=== PATIENT | female | born 1950 | race Asian ===

== ENCOUNTER 2017-01-10 20:53 | Inpatient (IN) | payer MEDICARE, MEDICAID ==
[~2017-01-10] VITALS: Ht 152.4 cm; Wt 61.5 kg
[~2017-01-10 20:53] MED LIST: GLIM2 PO; LORA10TA7 PO; OMEP20 PO; PHOSLOC PO; SIMV-260 PO; WARF2TAB6 PO
[2017-01-10 22:40] LABS: BASOPHILS # (AUTO) 0.03 K/uL (0.00-0.20); BASOPHILS % (AUTO) 0.5 % (0.0-2.0); EOSINOPHILS # (AUTO) 0.27 K/uL (0.00-0.70); EOSINOPHILS % (AUTO) 4.23 % (1.0-6.0); HEMATOCRIT 34.8 % (36-46); HEMOGLOBIN 11.2 g/dL (12.0-16.0); LYMPHOCYTES # (AUTO) 1.2 K/uL (1.0-4.8); LYMPHOCYTES % (AUTO) 18.2 % (22.0-44.0); MEAN CORPUSCULAR HEMOGLOBIN 26.5 pg (26.0-34.0); MEAN CORPUSCULAR HGB CONC 32.3 G/dL (31.0-37.0); MEAN CORPUSCULAR VOLUME 82 fL (80-100); MONOCYTES # (AUTO) 0.6 K/uL (0.1-1.0); MONOCYTES % (AUTO) 9.9 % (2.0-9.0); NEUTROPHILS # (AUTO) 4.3 K/uL (1.8-7.7); NEUTROPHILS % (AUTO) 67.1 % (40.0-70.0); RED BLOOD CELL COUNT(AUTO) 4.25 MIL/uL (4.00-5.20); RED CELL DISTRIBUTION WIDTH 17.9 % (11.5-14.5); WHITE BLOOD COUNT (AUTO) 6.4 K/uL (4.5-11.0)
[2017-01-10 23:03] LABS: INR 2.1 (0.9-1.1); PROTHROMBIN TIME 22.5 SEC (9.4-11.6)
[2017-01-10 23:16] LABS: PLATELET COUNT (AUTO) 81 K/uL (150-450)
[2017-01-10 23:29] LABS: ALBUMIN 3.3 g/dL (3.4-5.0); CALCIUM, TOTAL 8.6 mg/dL (8.8-10.5); CREATININE 9.76 mg/dL (0.60-1.30); TOTAL PROTEIN, SERUM 8.2 g/dL (6.4-8.2)
[2017-01-10] MEDS ORDERED: HYDROmorphone 2 MG/ML SYRINGE IVP ONE (23:30)
[2017-01-10] MEDS ORDERED: ONDANSETRON HCL 4 MG/2 ML VIAL IVP ONE (23:30)
[2017-01-10 23:31] LABS: LACTIC ACID 1.2 mmol/L (0.4-2.0)
[2017-01-10 23:35] LABS: POTASSIUM 3.8 mmol/L (3.5-5.1)
[2017-01-11] MEDS ORDERED: 0.9% SODIUM CHLORIDE 10 ML SYRINGE IVP PRN
[2017-01-11] MEDS ORDERED: MethylPREDNISolone SOD SUCC 125 MG/2 ML VIAL IVP ONE (00:15)
[2017-01-11 00:27] LABS: ERYTHROCYTE SEDIMENTATION RATE 45 MM/HR (0-20)
[2017-01-11 01:19] VITALS: BP 131/52
[2017-01-11] MEDS ORDERED: MAGNESIUM HYDROXIDE SUSPENSION 30 ML UDCUP PO PRN (01:30)
[2017-01-11] MEDS ORDERED: ONDANSETRON HCL 4 MG/2 ML VIAL IVP PRN ×2 (01:30)
[2017-01-11] MEDS ORDERED: MORPHINE SULFATE 2 MG/ML SYRINGE IVP PRN (01:30)
[2017-01-11] MEDS ORDERED: ALBUTEROL SULFATE 2.5 MG/0.5 ML NEB SOLUTION NEB PRN (01:30)
[2017-01-11] MEDS ORDERED: IPRATROPIUM BROMIDE 0.5 MG/2.5 ML NEB SOLUTION NEB PRN (01:30)
[2017-01-11] MEDS ORDERED: ACETAMINOPHEN 325 MG TABLET PO PRN ×2 (01:30)
[2017-01-11] MEDS ORDERED: BISACODYL 10 MG RECTAL RECTAL SUPPOSITORY PR PRN (01:30)
[2017-01-11 05:36] VITALS: BP 105/51
[2017-01-11 07:24] VITALS: BP 100/46
[2017-01-11] MEDS: PANTOPRAZOLE SODIUM 40 MG/VIAL IVP SCH (08:14)
[2017-01-11] MEDS: CALCIUM ACETATE 667 MG CAPSULE PO SCH ×3 (08:14→18:19)
[2017-01-11] MEDS: GLIMEPIRIDE 2 MG TABLET PO SCH ×2 (08:14→18:19)
[2017-01-11] MEDS: MethylPREDNISolone SOD SUCC 125 MG/2 ML VIAL IVP SCH ×3 (08:14→23:08)
[2017-01-11] MEDS: HEPARIN SODIUM,PORCINE 5,000 UNITS/ML VIAL SQ SCH ×2 (08:15→23:08)
[2017-01-11] MEDS: OxyCODONE HCL/ACETAMINOPHEN 5-325 MG TABLET PO PRN (10:30)
[2017-01-11 11:15] VITALS: BP 106/50
[2017-01-11] MEDS ORDERED: LIDOCAINE HCL/PF 1% 2 ML VIAL INJ ONE (12:00)
[2017-01-11 15:26] VITALS: BP 109/55
[2017-01-11] MEDS: WARFARIN SODIUM 2 MG TABLET PO SCH (16:18)
[2017-01-11] MEDS ORDERED: SODIUM CHLORIDE 0.9% 2,000 ML IV ONE (18:39)
[2017-01-11] MEDS ORDERED: DOXERCALCIFEROL 4 MCG/2 ML AMP IVP PRN (21:15)
[2017-01-11] MEDS: SIMVASTATIN 20 MG TABLET PO SCH (23:08)
[2017-01-11 23:42] VITALS: BP 107/44
[2017-01-12 04:14] VITALS: BP 114/51
[2017-01-12 05:58] LABS: BASOPHILS % (AUTO) 0.1 % (0.0-2.0); EOSINOPHILS % (AUTO) 0 % (1.0-6.0); HEMATOCRIT 33.2 % (36-46); HEMOGLOBIN 10.8 g/dL (12.0-16.0); LYMPHOCYTES # (AUTO) 0.5 K/uL (1.0-4.8); MEAN CORPUSCULAR HEMOGLOBIN 26.6 pg (26.0-34.0); MEAN CORPUSCULAR HGB CONC 32.4 G/dL (31.0-37.0); MEAN CORPUSCULAR VOLUME 82 fL (80-100); MONOCYTES # (AUTO) 0.1 K/uL (0.1-1.0); MONOCYTES % (AUTO) 1.7 % (2.0-9.0); NEUTROPHILS # (AUTO) 3.9 K/uL (1.8-7.7); PLATELET COUNT (AUTO) 77 K/uL (150-450); RED BLOOD CELL COUNT(AUTO) 4.04 MIL/uL (4.00-5.20); WHITE BLOOD COUNT (AUTO) 4.5 K/uL (4.5-11.0)
[2017-01-12 06:05] LABS: INR 2.9 (0.9-1.1); PROTHROMBIN TIME 30.5 SEC (9.4-11.6)
[2017-01-12 06:22] LABS: ALBUMIN 3.1 g/dL (3.4-5.0); BILIRUBIN,TOTAL 0.7 mg/dL (0.1-1.0); CALCIUM, TOTAL 8.3 mg/dL (8.8-10.5); CREATININE 5.89 mg/dL (0.60-1.30); MAGNESIUM 1.9 mg/dL (1.80-2.40); PHOSPHORUS 6.4 mg/dL (2.5-4.9); POTASSIUM 4.8 mmol/L (3.5-5.1)
[2017-01-12 06:48] LABS: NEUTROPHILS % (AUTO) 88.2 % (40.0-70.0)
[2017-01-12 06:49] LABS: RBC MORPHOLOGY COMMENT ABNORMAL RBC MORPH
[2017-01-12 07:14] VITALS: BP 110/54
[2017-01-12] MEDS: HEPARIN SODIUM,PORCINE 5,000 UNITS/ML VIAL SQ SCH (08:22)
[2017-01-12] MEDS: CALCIUM ACETATE 667 MG CAPSULE PO SCH ×2 (08:22→12:00)
[2017-01-12] MEDS: GLIMEPIRIDE 2 MG TABLET PO SCH ×2 (08:22→22:31)
[2017-01-12] MEDS: PANTOPRAZOLE SODIUM 40 MG/VIAL IVP SCH (08:22)
[2017-01-12] MEDS: MethylPREDNISolone SOD SUCC 125 MG/2 ML VIAL IVP SCH ×2 (08:22→16:28)
[2017-01-12] MEDS: VITAMIN B COMP/VIT C/FOLIC ACID CAPSULE PO SCH (08:26)
[2017-01-12 10:59] LABS: HEMOGLOBIN A1C 7.4 % (4.5-6.2)
[2017-01-12 11:34] VITALS: BP 121/58
[2017-01-12 15:06] VITALS: BP 106/48
[2017-01-12] MEDS: WARFARIN SODIUM 2 MG TABLET PO SCH (20:04)
[2017-01-12] MEDS: SIMVASTATIN 20 MG TABLET PO SCH (20:04)
[2017-01-12 20:38] VITALS: BP 111/47
[2017-01-12 22:52] LABS: GLUCOSE,POINT OF CARE 276 MG/DL (70-110)
[2017-01-12 23:37] VITALS: BP 111/57
[2017-01-13] MEDS: MethylPREDNISolone SOD SUCC 125 MG/2 ML VIAL IVP SCH ×3 (00:05→17:08)
[2017-01-13] MEDS: ZOLPIDEM TARTRATE 5 MG TABLET PO PRN ×2 (00:18→22:35)
[2017-01-13 04:07] LABS: HEPATITIS C AB SCREEN <0.1 s/co ratio (0.0-0.9)
[2017-01-13 04:42] VITALS: BP 115/46
[2017-01-13 05:33] LABS: GLUCOSE,POINT OF CARE 224 MG/DL (70-110)
[2017-01-13 06:28] LABS: BASOPHILS % (AUTO) 0.1 % (0.0-2.0); EOSINOPHILS % (AUTO) 0.08 % (1.0-6.0); HEMATOCRIT 32.5 % (36-46); HEMOGLOBIN 10.7 g/dL (12.0-16.0); LYMPHOCYTES # (AUTO) 0.5 K/uL (1.0-4.8); LYMPHOCYTES % (AUTO) 10.5 % (22.0-44.0); MEAN CORPUSCULAR HEMOGLOBIN 26.8 pg (26.0-34.0); MEAN CORPUSCULAR HGB CONC 32.9 G/dL (31.0-37.0); MEAN CORPUSCULAR VOLUME 81 fL (80-100); MONOCYTES # (AUTO) 0.1 K/uL (0.1-1.0); MONOCYTES % (AUTO) 1.5 % (2.0-9.0); NEUTROPHILS # (AUTO) 4.3 K/uL (1.8-7.7); PLATELET COUNT (AUTO) 94 K/uL (150-450); RED BLOOD CELL COUNT(AUTO) 3.99 MIL/uL (4.00-5.20); RED CELL DISTRIBUTION WIDTH 17.7 % (11.5-14.5); WHITE BLOOD COUNT (AUTO) 4.9 K/uL (4.5-11.0)
[2017-01-13 06:49] LABS: NEUTROPHILS % (AUTO) 87.9 % (40.0-70.0)
[2017-01-13 07:15] VITALS: BP 108/55
[2017-01-13 07:28] LABS: CREATININE 8.54 mg/dL (0.60-1.30)
[2017-01-13 07:35] LABS: POTASSIUM 6.5 mmol/L (3.5-5.1)
[2017-01-13] MEDS ORDERED: SODIUM CHLORIDE 0.9% 1,000 ML IV ONE (08:05)
[2017-01-13] MEDS ORDERED: EPOETIN ALFA 10,000 UNITS/ML VIAL SQ SCH (09:00)
[2017-01-13 09:26] LABS: RBC MORPHOLOGY COMMENT ABNORMAL RBC MORPH
[2017-01-13] MEDS: CALCIUM ACETATE 667 MG CAPSULE PO SCH ×3 (09:36→17:08)
[2017-01-13] MEDS: VITAMIN B COMP/VIT C/FOLIC ACID CAPSULE PO SCH (09:37)
[2017-01-13] MEDS: GLIMEPIRIDE 2 MG TABLET PO SCH ×2 (09:37→17:08)
[2017-01-13 15:26] VITALS: BP 117/50
[2017-01-13] MEDS: WARFARIN SODIUM 2 MG TABLET PO SCH (17:08)
[2017-01-13 19:09] VITALS: BP 113/50
[2017-01-13] MEDS: SIMVASTATIN 20 MG TABLET PO SCH (20:07)
[2017-01-13] MEDS ORDERED: LIDOCAINE HCL/PF 1% 2 ML VIAL IM ONE (22:05)
[2017-01-13] MEDS: OxyCODONE HCL/ACETAMINOPHEN 5-325 MG TABLET PO PRN (22:35)
[2017-01-14] VITALS: BP_SYST 114; BP_DIAS 39; BP_DIAS 47
[2017-01-14 04:00] VITALS: BP 102/47
[2017-01-14 06:22] LABS: GLUCOSE COMMENT 1 Juice/Food/D50 Given; GLUCOSE,POINT OF CARE 281 MG/DL (70-110)
[2017-01-14 08:12] VITALS: BP 111/58
[2017-01-14] MEDS: GLIMEPIRIDE 2 MG TABLET PO SCH (08:53)
[2017-01-14] MEDS: VITAMIN B COMP/VIT C/FOLIC ACID CAPSULE PO SCH (08:53)
[2017-01-14] MEDS: MethylPREDNISolone SOD SUCC 125 MG/2 ML VIAL IVP SCH ×2 (08:53)
[2017-01-14] MEDS: CALCIUM ACETATE 667 MG CAPSULE PO SCH ×2 (08:53→11:58)
[2017-01-14 11:25] VITALS: BP 116/51
[2017-01-14 15:23] LABS: SSA/Ro SJOGRENS ANTIBODY <0.2 AI (0.0-0.9); SSB/La SJOGREN'S ANTIBODY <0.2 AI (0.0-0.9)
[2017-01-15 06:19] LABS: COMPLEMENT C3 107 mg/dL (82-167); COMPLEMENT C4 34 mg/dL (14-44)
[2017-01-17 12:09] LABS: ANTI-PROTEINASE 3 (PR3) <3.5 U/mL (0.0-3.5); MYELOPEROXIDASE AB <9.0 U/mL (0.0-9.0)
[2017-01-18 14:42] LABS: ANA,IFA (TITER & PATTERN) Negative
[2017-02-16] MEDS ORDERED: CEPH250 PO (15:35)
[2017-02-16] MEDS ORDERED: INSNPH SQ (15:35)
== END 2017-01-14 14:45 | disposition home or self-care (01) | DRG 438 ==
LOC: EMS 20:54 → 6N 01-11 00:41
PROVIDERS: ADMIT Internal Medicine; ATTEND Internal Medicine
PROC: 0HBKXZX Excision of Right Lower Leg Skin, External Approach, Diagnostic (ICD-10-PCS; principal; 2017-01-12)
DX: K85.90 Acute pancreatitis without necrosis or infection, unspecified (principal); N18.6 End stage renal disease; I13.2 Hypertensive heart and chronic kidney disease with heart failure and with stage 5 chronic kidney disease, or end stage renal disease; D69.6 Thrombocytopenia, unspecified; E11.22 Type 2 diabetes mellitus with diabetic chronic kidney disease; E11.65 Type 2 diabetes mellitus with hyperglycemia; I48.0 Paroxysmal atrial fibrillation; E87.1 Hypo-osmolality and hyponatremia; L95.9 Vasculitis limited to the skin, unspecified; D63.1 Anemia in chronic kidney disease; E55.9 Vitamin D deficiency, unspecified; E78.5 Hyperlipidemia, unspecified; I50.9 Heart failure, unspecified; E87.5 Hyperkalemia; I25.10 Atherosclerotic heart disease of native coronary artery without angina pectoris; N28.1 Cyst of kidney, acquired; K21.9 Gastro-esophageal reflux disease without esophagitis; Z79.84 Long term (current) use of oral hypoglycemic drugs; Z79.899 Other long term (current) drug therapy; Z86.73 Personal history of transient ischemic attack (TIA), and cerebral infarction without residual deficits; Z87.441 Personal history of nephrotic syndrome; Z95.1 Presence of aortocoronary bypass graft; Z95.2 Presence of prosthetic heart valve; Z95.810 Presence of automatic (implantable) cardiac defibrillator; Z99.2 Dependence on renal dialysis; Z79.01 Long term (current) use of anticoagulants
CPT/HCPCS: 76700; 82271; 82595; 82962; 83036; 83516; 83605; 83735; 84100; 85397; 85651; 86038; 86140; 86160; 86235; 86430; 86704; 86706; 86803; 87040; 87081; 87340; 87389; 90935; 93005; 96374; 96375; 99285; C9113; J0885; J1170; J1644; J2405; J2930; J3490; J7030

== ENCOUNTER 2017-02-05 15:19 | Emergency (ER) | payer MEDICARE, MEDICAID ==
[~2017-02-05] VITALS: Ht 149.9 cm; Wt 60.0 kg
[~2017-02-05 15:19] MED LIST changes: -LORA10TA7 PO
[2017-02-05 15:48] LABS: GLUCOSE,POINT OF CARE 404 MG/DL (70-110)
[2017-02-05 16:21] LABS: BASOPHILS % (AUTO) 0.1 % (0.0-2.0); EOSINOPHILS % (AUTO) 3.3 % (1.0-6.0); HEMATOCRIT 28.9 % (36-46); HEMOGLOBIN 9.4 g/dL (12.0-16.0); LYMPHOCYTES # (AUTO) 0.6 K/uL (1.0-4.8); LYMPHOCYTES % (AUTO) 8.7 % (22.0-44.0); MEAN CORPUSCULAR HEMOGLOBIN 26.6 pg (26.0-34.0); MEAN CORPUSCULAR HGB CONC 32.5 G/dL (31.0-37.0); MEAN CORPUSCULAR VOLUME 82 fL (80-100); MONOCYTES # (AUTO) 0.6 K/uL (0.1-1.0); MONOCYTES % (AUTO) 8.8 % (2.0-9.0); NEUTROPHILS # (AUTO) 5.7 K/uL (1.8-7.7); NEUTROPHILS % (AUTO) 79.1 % (40.0-70.0); RED BLOOD CELL COUNT(AUTO) 3.54 MIL/uL (4.00-5.20); RED CELL DISTRIBUTION WIDTH 18.1 % (11.5-14.5); WHITE BLOOD COUNT (AUTO) 7.2 K/uL (4.5-11.0)
[2017-02-05 16:27] LABS: INR 3.7 (0.9-1.1); PROTHROMBIN TIME 38.7 SEC (9.4-11.6)
[2017-02-05 17:01] LABS: CALCIUM, TOTAL 8.1 mg/dL (8.8-10.5); CREATININE 3.46 mg/dL (0.60-1.30); POTASSIUM 3.2 mmol/L (3.5-5.1)
[2017-02-05 17:15] LABS: ALBUMIN 2.8 g/dL (3.4-5.0)
[2017-02-05 17:22] LABS: PLATELET COUNT (AUTO) 79 K/uL (150-450); RBC MORPHOLOGY COMMENT ABNORMAL RBC MORPH
[2017-02-05 17:47] VITALS: BP 120/44
[2017-02-05] MEDS ORDERED: ACETAMINOPHEN 325 MG TABLET PO ONE (18:00)
[2017-02-16] MEDS ORDERED: INSNPH SQ (15:35)
[2017-02-16] MEDS ORDERED: CEPH250 PO (15:35)
== END 2017-02-05 18:31 | disposition home or self-care (01) ==
LOC: EMS 15:21
DX: I13.2 Hypertensive heart and chronic kidney disease with heart failure and with stage 5 chronic kidney disease, or end stage renal disease (principal); E11.22 Type 2 diabetes mellitus with diabetic chronic kidney disease; N18.6 End stage renal disease; I50.9 Heart failure, unspecified; E11.65 Type 2 diabetes mellitus with hyperglycemia; L97.509 Non-pressure chronic ulcer of other part of unspecified foot with unspecified severity; R79.1 Abnormal coagulation profile; Z99.2 Dependence on renal dialysis; Z95.0 Presence of cardiac pacemaker; Z86.73 Personal history of transient ischemic attack (TIA), and cerebral infarction without residual deficits
CPT/HCPCS: 70450; 74176; 82962; 99285

== ENCOUNTER → 2017-02-16 | Outpatient (CLI) | payer MEDICARE, MEDICAID ==
[~2017-02-16] VITALS: Ht 154.9 cm; Wt 59.7 kg
[~2017-02-16] MED LIST changes: +CEPH250 PO; +INSNPH SQ
[2017-02-16 14:12] VITALS: BP 119/46
== END | disposition home or self-care (01) ==
LOC: HBOWC 13:07
PROVIDERS: ATTEND Podiatrist
DX: E11.622 Type 2 diabetes mellitus with other skin ulcer (principal); L97.811 Non-pressure chronic ulcer of other part of right lower leg limited to breakdown of skin; I87.2 Venous insufficiency (chronic) (peripheral); E11.65 Type 2 diabetes mellitus with hyperglycemia; E11.22 Type 2 diabetes mellitus with diabetic chronic kidney disease; I13.2 Hypertensive heart and chronic kidney disease with heart failure and with stage 5 chronic kidney disease, or end stage renal disease; N18.6 End stage renal disease; I50.9 Heart failure, unspecified; I25.10 Atherosclerotic heart disease of native coronary artery without angina pectoris; K21.9 Gastro-esophageal reflux disease without esophagitis; E78.5 Hyperlipidemia, unspecified; I48.0 Paroxysmal atrial fibrillation; E55.9 Vitamin D deficiency, unspecified; Z99.2 Dependence on renal dialysis; Z95.1 Presence of aortocoronary bypass graft; Z86.73 Personal history of transient ischemic attack (TIA), and cerebral infarction without residual deficits; Z79.84 Long term (current) use of oral hypoglycemic drugs; Z79.01 Long term (current) use of anticoagulants
CPT/HCPCS: 97597; G0463

== ENCOUNTER 2017-03-29 23:09 | Emergency (ER) | payer MEDICARE, MEDICAID ==
[~2017-03-29] VITALS: Ht 144.8 cm; Wt 50.0 kg
[2017-03-29 23:28] LABS: GLUCOSE COMMENT 1 Doctor Notified; GLUCOSE,POINT OF CARE 93 MG/DL (70-110)
[2017-03-30 00:35] VITALS: BP 129/65
== END 2017-03-30 00:38 | disposition home or self-care (01) ==
LOC: EMS 23:10
DX: H11.31 Conjunctival hemorrhage, right eye (principal); I11.0 Hypertensive heart disease with heart failure; I50.9 Heart failure, unspecified; E11.29 Type 2 diabetes mellitus with other diabetic kidney complication; N28.9 Disorder of kidney and ureter, unspecified; Z79.4 Long term (current) use of insulin; Z99.2 Dependence on renal dialysis
CPT/HCPCS: 82962; 99282

== ENCOUNTER 2017-07-18 10:35 | Emergency (ER) | payer MEDICARE, MEDICAID ==
[~2017-07-18] VITALS: Ht 154.9 cm; Wt 55.5 kg
[~2017-07-18 10:35] MED LIST changes: -CEPH250 PO; +WARF-67 PO; -WARF2TAB6 PO
[2017-07-18 11:03] VITALS: BP 130/58
[2017-07-18 11:03] LABS: GLUCOSE,POINT OF CARE 90 MG/DL (70-110)
== END 2017-07-18 11:16 | disposition left against medical advice (07) ==
LOC: EMS 10:39
DX: R41.0 Disorientation, unspecified (principal); E11.9 Type 2 diabetes mellitus without complications; I11.0 Hypertensive heart disease with heart failure; I50.9 Heart failure, unspecified
CPT/HCPCS: 82962; 99282

== ENCOUNTER 2018-06-26 15:20 | Emergency (ER) | payer MEDICARE, MEDICAID ==
[~2018-06-26] VITALS: Ht 149.9 cm; Wt 61.4 kg
[~2018-06-26 15:20] MED LIST changes: +AZIT500T2 PO; -INSNPH SQ
[2018-06-26 15:38] LABS: GLUCOSE,POINT OF CARE 118 MG/DL (70-110)
[2018-06-26] MEDS ORDERED: GELATIN SPONGE,ABSORBABLE 12-7 MM TP ONE (17:15)
[2018-06-26 18:11] LABS: INR 1.4 (0.9-1.1); PROTHROMBIN TIME 14.7 SEC (9.4-11.6)
[2018-06-26 18:28] VITALS: BP 123/51
== END 2018-06-26 18:44 | disposition home or self-care (01) ==
LOC: EMS 15:22
DX: K06.8 Other specified disorders of gingiva and edentulous alveolar ridge (principal); I11.0 Hypertensive heart disease with heart failure; I50.9 Heart failure, unspecified; E11.9 Type 2 diabetes mellitus without complications; Z86.79 Personal history of other diseases of the circulatory system; Z79.01 Long term (current) use of anticoagulants; Z79.84 Long term (current) use of oral hypoglycemic drugs; Z79.899 Other long term (current) drug therapy

== ENCOUNTER 2018-07-08 23:59 | Emergency (ER) | payer MEDICARE, MEDICAID ==
[~2018-07-08] VITALS: Ht 157.5 cm; Wt 60.0 kg
[~2018-07-08 23:59] MED LIST changes: -AZIT500T2 PO
[2018-07-09] MEDS ORDERED: WARF3TAB29 PO (00:07)
[2018-07-09] MEDS ORDERED: WARF1 PO (00:07)
[2018-07-09 02:42] VITALS: BP 130/62
== END 2018-07-09 02:47 | disposition home or self-care (01) ==
LOC: EMS 07-09 00:01
DX: M79.5 Residual foreign body in soft tissue (principal); I11.0 Hypertensive heart disease with heart failure; I50.9 Heart failure, unspecified; E11.9 Type 2 diabetes mellitus without complications; Z79.899 Other long term (current) drug therapy

== ENCOUNTER → 2018-09-13 | Outpatient (CLI) | payer MEDICARE, MEDICAID ==
[~2018-09-13] MED LIST changes: -WARF-67 PO; +WARF1 PO; +WARF3TAB29 PO
== END | disposition home or self-care (01) ==
LOC: RADPV 13:51
PROVIDERS: ATTEND Internal Medicine Nephrology
DX: I51.7 Cardiomegaly (principal); I70.0 Atherosclerosis of aorta; R04.2 Hemoptysis

== ENCOUNTER 2019-04-30 02:57 | Emergency (ER) | payer MEDICARE, MEDICAID ==
[~2019-04-30] VITALS: Ht 152.4 cm; Wt 61.0 kg
[2019-04-30 03:26] LABS: GLUCOSE,POINT OF CARE 97 MG/DL (70-110)
[2019-04-30 04:21] LABS: BASOPHILS % (AUTO) 0.8 % (0.0-2.0); EOSINOPHILS % (AUTO) 6.3 % (1.0-6.0); HEMATOCRIT 31.2 % (36-46); LYMPHOCYTES % (AUTO) 18.1 % (22.0-44.0); MEAN CORPUSCULAR HEMOGLOBIN 26.2 pg (26.0-34.0); MEAN CORPUSCULAR VOLUME 82 fL (80-100); MONOCYTES % (AUTO) 17.3 % (2.0-9.0); NEUTROPHILS # (AUTO) 3.2 K/uL (1.8-7.7); NEUTROPHILS % (AUTO) 57.5 % (40.0-70.0); RED BLOOD CELL COUNT(AUTO) 3.81 MIL/uL (4.00-5.20); RED CELL DISTRIBUTION WIDTH 16.4 % (11.5-14.5)
[2019-04-30 04:28] LABS: CREATININE 8.65 mg/dL (0.60-1.30); POTASSIUM 4.1 mmol/L (3.5-5.1)
[2019-04-30 04:31] LABS: INR 2.2 (0.9-1.1); PROTHROMBIN TIME 22.3 SEC (9.4-11.6)
[2019-04-30 04:42] LABS: PLATELET COUNT (AUTO) 74 K/uL (150-450)
[2019-04-30 04:54] LABS: ALBUMIN 3.3 g/dL (3.4-5.0); BILIRUBIN,TOTAL 0.6 mg/dL (0.1-1.0); TOTAL PROTEIN, SERUM 7.8 g/dL (6.4-8.2)
[2019-04-30 06:01] VITALS: BP 122/63
== END 2019-04-30 06:05 | disposition home or self-care (01) ==
LOC: EMS 02:57
DX: R05 Cough (principal); R79.1 Abnormal coagulation profile; R06.02 Shortness of breath; I13.2 Hypertensive heart and chronic kidney disease with heart failure and with stage 5 chronic kidney disease, or end stage renal disease; E11.22 Type 2 diabetes mellitus with diabetic chronic kidney disease; N18.6 End stage renal disease; I50.9 Heart failure, unspecified; I25.10 Atherosclerotic heart disease of native coronary artery without angina pectoris; Z99.2 Dependence on renal dialysis; Z86.73 Personal history of transient ischemic attack (TIA), and cerebral infarction without residual deficits; Z79.01 Long term (current) use of anticoagulants
CPT/HCPCS: 93005

== ENCOUNTER → 2019-05-23 | Outpatient (CLI) | payer MEDICARE, MEDICAID | END | disposition home or self-care (01) | LOC: RADPV 08:52 | PROVIDERS: ATTEND Internal Medicine Nephrology | DX: E85.4 Organ-limited amyloidosis (principal) ==

== ENCOUNTER 2020-06-14 01:21 | Emergency (ER) | payer MEDICARE, MEDICAID ==
[~2020-06-14] VITALS: Ht 152.4 cm; Wt 59.1 kg
[~2020-06-14 01:21] MED LIST changes: -WARF1 PO; +WARF1TAB9 PO; -WARF3TAB29 PO; +WARF3TAB8 PO
[2020-06-14 01:58] LABS: GLUCOSE,POINT OF CARE 205 MG/DL (70-110)
[2020-06-14 02:35] LABS: BASOPHILS % (AUTO) 0.8 % (0.0-2.0); EOSINOPHILS % (AUTO) 4.5 % (1.0-6.0); HEMATOCRIT 36.6 % (36-46); HEMOGLOBIN 11.7 g/dL (12.0-16.0); LYMPHOCYTES # (AUTO) 1.5 K/uL (1.0-4.8); LYMPHOCYTES % (AUTO) 20.4 % (22.0-44.0); MEAN CORPUSCULAR HEMOGLOBIN 26.7 pg (26.0-34.0); MEAN CORPUSCULAR VOLUME 83 fL (80-100); MONOCYTES # (AUTO) 0.9 K/uL (0.1-1.0); MONOCYTES % (AUTO) 12.7 % (2.0-9.0); NEUTROPHILS # (AUTO) 4.4 K/uL (1.8-7.7); NEUTROPHILS % (AUTO) 61.6 % (40.0-70.0); RED BLOOD CELL COUNT(AUTO) 4.38 MIL/uL (4.00-5.20); RED CELL DISTRIBUTION WIDTH 16.8 % (11.5-14.5)
[2020-06-14 03:01] LABS: ALBUMIN 3.7 g/dL (3.4-5.0); BILIRUBIN,TOTAL 0.7 mg/dL (0.1-1.0); CALCIUM, TOTAL 10.2 mg/dL (8.8-10.5); CREATININE 8.33 mg/dL (0.60-1.30); POTASSIUM 4.4 mmol/L (3.5-5.1)
[2020-06-14 03:07] LABS: PLATELET COUNT (AUTO) 93 K/uL (150-450)
[2020-06-14] MEDS ORDERED: DiphenhydrAMINE HCL 25 MG/10 ML ELIXIR UDCUP PO ONE (03:45)
[2020-06-14 03:58] LABS: INR 1.9 (0.9-1.1); PROTHROMBIN TIME 19.3 SEC (9.4-11.6)
[2020-06-14 04:20] VITALS: BP 125/75
== END 2020-06-14 04:52 | disposition home or self-care (01) ==
LOC: EMS 01:26
DX: D69.6 Thrombocytopenia, unspecified (principal); E11.22 Type 2 diabetes mellitus with diabetic chronic kidney disease; I13.2 Hypertensive heart and chronic kidney disease with heart failure and with stage 5 chronic kidney disease, or end stage renal disease; I50.9 Heart failure, unspecified; N18.6 End stage renal disease; Z99.2 Dependence on renal dialysis; Z79.01 Long term (current) use of anticoagulants
CPT/HCPCS: 93005; 99284

== ENCOUNTER 2020-10-31 06:08 | Emergency (ER) | payer MEDICARE, MEDICAID ==
[~2020-10-31] VITALS: Ht 149.9 cm; Wt 60.9 kg
[2020-10-31 07:16] LABS: BASOPHILS % (AUTO) 0.9 % (0.0-2.0); EOSINOPHILS % (AUTO) 4.2 % (1.0-6.0); HEMATOCRIT 36.4 % (36-46); HEMOGLOBIN 11.5 g/dL (12.0-16.0); LYMPHOCYTES # (AUTO) 1.2 K/uL (1.0-4.8); LYMPHOCYTES % (AUTO) 21.2 % (22.0-44.0); MEAN CORPUSCULAR HEMOGLOBIN 27.2 pg (26.0-34.0); MEAN CORPUSCULAR HGB CONC 31.5 G/dL (31.0-37.0); MEAN CORPUSCULAR VOLUME 86 fL (80-100); MONOCYTES # (AUTO) 0.7 K/uL (0.1-1.0); MONOCYTES % (AUTO) 12.8 % (2.0-9.0); NEUTROPHILS # (AUTO) 3.4 K/uL (1.8-7.7); NEUTROPHILS % (AUTO) 60.9 % (40.0-70.0); RED BLOOD CELL COUNT(AUTO) 4.22 MIL/uL (4.00-5.20); RED CELL DISTRIBUTION WIDTH 16.5 % (11.5-14.5)
[2020-10-31 07:26] LABS: CALCIUM, TOTAL 9.8 mg/dL (8.8-10.5); CREATININE 5.56 mg/dL (0.60-1.30); POTASSIUM 3.9 mmol/L (3.5-5.1)
[2020-10-31 07:29] LABS: INR 3.3 (0.9-1.1); PROTHROMBIN TIME 31.9 SEC (9.4-11.6)
[2020-10-31 07:32] LABS: ALBUMIN 3.7 g/dL (3.4-5.0); BILIRUBIN,TOTAL 0.7 mg/dL (0.1-1.0); PLATELET COUNT (AUTO) 99 K/uL (150-450); TOTAL PROTEIN, SERUM 8.3 g/dL (6.4-8.2)
[2020-10-31 08:54] VITALS: BP 145/74
== END 2020-10-31 08:55 | disposition home or self-care (01) ==
LOC: EMS 06:09
DX: T82.838A Hemorrhage due to vascular prosthetic devices, implants and grafts, initial encounter (principal); I13.2 Hypertensive heart and chronic kidney disease with heart failure and with stage 5 chronic kidney disease, or end stage renal disease; E11.22 Type 2 diabetes mellitus with diabetic chronic kidney disease; N18.6 End stage renal disease; Z79.899 Other long term (current) drug therapy; Z79.4 Long term (current) use of insulin; Z79.01 Long term (current) use of anticoagulants; Y84.8 Other medical procedures as the cause of abnormal reaction of the patient, or of later complication, without mention of misadventure at the time of the procedure
CPT/HCPCS: 80053; 85025; 85610; 85730; 86850; 86870; 86900; 86901; 99284

== ENCOUNTER 2021-03-09 10:18 | Inpatient (IN) | payer MEDICARE, MEDICAID ==
[~2021-03-09] VITALS: Ht 154.9 cm; Wt 61.3 kg
[2021-03-09 11:41] LABS: BASOPHILS % (AUTO) 0.3 % (0.0-2.0); EOSINOPHILS % (AUTO) 0 % (1.0-6.0); HEMATOCRIT 33.1 % (36-46); HEMOGLOBIN 10.4 g/dL (12.0-16.0); LYMPHOCYTES # (AUTO) 0.6 K/uL (1.0-4.8); LYMPHOCYTES % (AUTO) 3.4 % (22.0-44.0); MEAN CORPUSCULAR HEMOGLOBIN 25.9 pg (26.0-34.0); MEAN CORPUSCULAR HGB CONC 31.4 G/dL (31.0-37.0); MEAN CORPUSCULAR VOLUME 82 fL (80-100); MONOCYTES # (AUTO) 1.5 K/uL (0.1-1.0); MONOCYTES % (AUTO) 8.4 % (2.0-9.0); NEUTROPHILS # (AUTO) 15.5 K/uL (1.8-7.7); RED BLOOD CELL COUNT(AUTO) 4.02 MIL/uL (4.00-5.20); RED CELL DISTRIBUTION WIDTH 16.6 % (11.5-14.5)
[2021-03-09 11:42] LABS: NEUTROPHILS % (AUTO) 87.9 % (40.0-70.0)
[2021-03-09 11:46] LABS: PLATELET COUNT (AUTO) 50 K/uL (150-450)
[2021-03-09 11:56] LABS: COVID AG,FIA SOURCE NASOPHARYNGEAL
[2021-03-09 12:25] LABS: ALBUMIN 3.4 g/dL (3.4-5.0); BILIRUBIN,TOTAL 1.3 mg/dL (0.1-1.0); CREATININE 9.72 mg/dL (0.60-1.30); POTASSIUM 3.9 mmol/L (3.5-5.1); TOTAL PROTEIN, SERUM 7.9 g/dL (6.4-8.2)
[2021-03-09] MEDS ORDERED: ACETAMINOPHEN 500 MG TABLET PO ONE (12:30)
[2021-03-09] MEDS ORDERED: CefTRIAXone 1 GM/DEXTROSE 50 ML IV ONE (12:30)
[2021-03-09] MEDS ORDERED: SODIUM CHLORIDE 0.9% 500 ML IV ONE ×2 (12:30→14:15)
[2021-03-09] MEDS ORDERED: DOXYCYCLINE HYCLATE 100 MG in DEXTROSE 5%-WATER 100 ML IV ONE (13:00)
[2021-03-09 13:04] LABS: LACTIC ACID 2.3 mmol/L (0.4-2.0)
[2021-03-09] MEDS ORDERED: DEXTROSE 50%-WATER 25 GM/50 ML SYRINGE IVP PRN (14:15)
[2021-03-09] MEDS ORDERED: ACETAMINOPHEN 325 MG TABLET PO PRN (14:30)
[2021-03-09] MEDS ORDERED: 0.9% SODIUM CHLORIDE 10 ML SYRINGE IVP PRN (14:30)
[2021-03-09] MEDS ORDERED: ONDANSETRON HCL 4 MG/2 ML VIAL IVP PRN (14:30)
[2021-03-09 14:48] LABS: INFLUENZA TYPE A NEGATIVE FOR TYPE A (NEGATIVE); INFLUENZA TYPE B NEGATIVE FOR TYPE B (NEGATIVE)
[2021-03-09 14:57] LABS: INR 1.6 (0.9-1.1); PROTHROMBIN TIME 16.6 SEC (9.4-11.6)
[2021-03-09] MEDS ORDERED: HEPARIN SODIUM,PORCINE 5,000 UNITS/ML VIAL SQ SCH (16:00)
[2021-03-09] MEDS: CALCIUM ACETATE 667 MG CAPSULE PO SCH (17:00)
[2021-03-09 17:25] VITALS: BP 127/60
[2021-03-09] MEDS ORDERED: LACT30L PO (17:55)
[2021-03-09] MEDS ORDERED: SEVE800T7 PO (17:55)
[2021-03-09 20:10] VITALS: BP 122/57
[2021-03-09 20:37] LABS: GLUCOMETER DEV NAME(LOC) 5N.3; GLUCOSE,POINT OF CARE 369 MG/DL (70-110)
[2021-03-09] MEDS: WARFARIN SODIUM 1 MG TABLET PO SCH (21:00)
[2021-03-09] MEDS: SIMVASTATIN 20 MG TABLET PO SCH (21:00)
[2021-03-09] MEDS: DOCUSATE SODIUM 100 MG CAPSULE PO SCH (21:00)
[2021-03-10] VITALS (7 sets, daily range): BP systolic 103–134; BP diastolic 44–65
[2021-03-10] MEDS: AZITHROMYCIN 500 MG/NS 250 ML IV SCH (05:25)
[2021-03-10 05:57] LABS: GLUCOMETER DEV NAME(LOC) 5N.3; GLUCOSE,POINT OF CARE 134 MG/DL (70-110)
[2021-03-10 06:00] LABS: BASOPHILS % (AUTO) 0.2 % (0.0-2.0); EOSINOPHILS % (AUTO) 0.1 % (1.0-6.0); HEMATOCRIT 28.4 % (36-46); HEMOGLOBIN 9.2 g/dL (12.0-16.0); LYMPHOCYTES # (AUTO) 0.8 K/uL (1.0-4.8); LYMPHOCYTES % (AUTO) 5.9 % (22.0-44.0); MEAN CORPUSCULAR HGB CONC 32.3 G/dL (31.0-37.0); MEAN CORPUSCULAR VOLUME 80 fL (80-100); MONOCYTES # (AUTO) 1.4 K/uL (0.1-1.0); MONOCYTES % (AUTO) 9.6 % (2.0-9.0); NEUTROPHILS # (AUTO) 12.1 K/uL (1.8-7.7); NEUTROPHILS % (AUTO) 84.2 % (40.0-70.0); PLATELET COUNT (AUTO) 51 K/uL (150-450); RED BLOOD CELL COUNT(AUTO) 3.53 MIL/uL (4.00-5.20)
[2021-03-10 06:44] LABS: CALCIUM, TOTAL 8.7 mg/dL (8.8-10.5); CREATININE 10.66 mg/dL (0.60-1.30); POTASSIUM 4.3 mmol/L (3.5-5.1)
[2021-03-10 06:49] LABS: INR 2.1 (0.9-1.1); PROTHROMBIN TIME 21.2 SEC (9.4-11.6)
[2021-03-10] MEDS: PANTOPRAZOLE SODIUM 40 MG DR TABLET PO SCH (08:14)
[2021-03-10] MEDS: DOCUSATE SODIUM 100 MG CAPSULE PO SCH ×2 (08:14→21:00)
[2021-03-10] MEDS: CALCIUM ACETATE 667 MG CAPSULE PO SCH ×2 (08:14→17:02)
[2021-03-10] MEDS ORDERED: WARFARIN SODIUM 1 MG TABLET PO SCH (09:00)
[2021-03-10] MEDS: CefTRIAXone 1 GM/DEXTROSE 50 ML IV SCH (11:14)
[2021-03-10] MEDS ORDERED: SODIUM CHLORIDE 0.9% 250 ML IV ONE (11:16)
[2021-03-10] MEDS: INSULIN LISPRO 100 UNITS/ML SQ PRN (11:32)
[2021-03-10] MEDS ORDERED: SODIUM CHLORIDE 0.9% 1,000 ML ONE (17:13)
[2021-03-10 17:30] LABS: GLUCOMETER DEV NAME(LOC) 5N.1C; GLUCOSE,POINT OF CARE 139 MG/DL (70-110)
[2021-03-10] MEDS: ONDANSETRON HCL 4 MG/2 ML VIAL IVP PRN (18:32)
[2021-03-10 22:21] LABS: GLUCOMETER DEV NAME(LOC) 5N.1C; GLUCOSE,POINT OF CARE 87 MG/DL (70-110)
[2021-03-10] MEDS: SIMVASTATIN 20 MG TABLET PO SCH (22:58)
[2021-03-10] MEDS: ZOLPIDEM TARTRATE 5 MG TABLET PO PRN (22:59)
[2021-03-10] MEDS: WARFARIN SODIUM 1 MG TABLET PO SCH (22:59)
[2021-03-11] VITALS (7 sets, daily range): BP systolic 85–109; BP diastolic 40–57
[2021-03-11] MEDS ORDERED: SODIUM CHLORIDE 0.9% 250 ML IV ONE ×3 (05:41→11:22)
[2021-03-11] MEDS: AZITHROMYCIN 500 MG/NS 250 ML IV SCH (06:21)
[2021-03-11 06:23] LABS: GLUCOMETER DEV NAME(LOC) 5N.3; GLUCOSE,POINT OF CARE 222 MG/DL (70-110)
[2021-03-11 06:53] LABS: BASOPHILS % (AUTO) 0.3 % (0.0-2.0); HEMATOCRIT 29.4 % (36-46); HEMOGLOBIN 9.3 g/dL (12.0-16.0); LYMPHOCYTES # (AUTO) 0.9 K/uL (1.0-4.8); LYMPHOCYTES % (AUTO) 9.1 % (22.0-44.0); MEAN CORPUSCULAR HEMOGLOBIN 26.7 pg (26.0-34.0); MEAN CORPUSCULAR HGB CONC 31.5 G/dL (31.0-37.0); MEAN CORPUSCULAR VOLUME 85 fL (80-100); MONOCYTES # (AUTO) 0.9 K/uL (0.1-1.0); MONOCYTES % (AUTO) 9.6 % (2.0-9.0); NEUTROPHILS # (AUTO) 7.9 K/uL (1.8-7.7); PLATELET COUNT (AUTO) 57 K/uL (150-450); RED BLOOD CELL COUNT(AUTO) 3.47 MIL/uL (4.00-5.20); RED CELL DISTRIBUTION WIDTH 17.4 % (11.5-14.5)
[2021-03-11 07:00] LABS: CALCIUM, TOTAL 9.5 mg/dL (8.8-10.5); CREATININE 4.94 mg/dL (0.60-1.30); POTASSIUM 4.2 mmol/L (3.5-5.1)
[2021-03-11 07:08] LABS: INR 1.8 (0.9-1.1); PROTHROMBIN TIME 18.6 SEC (9.4-11.6)
[2021-03-11] MEDS: CALCIUM ACETATE 667 MG CAPSULE PO SCH ×2 (08:06→17:24)
[2021-03-11] MEDS: DOCUSATE SODIUM 100 MG CAPSULE PO SCH ×2 (08:06→20:44)
[2021-03-11] MEDS: PANTOPRAZOLE SODIUM 40 MG DR TABLET PO SCH (08:06)
[2021-03-11] MEDS: EPOETIN ALFA 10,000 UNITS/ML 2 ML VIAL SQ SCH (08:07)
[2021-03-11] MEDS ORDERED: WARFARIN SODIUM 3 MG TABLET PO SCH (09:00)
[2021-03-11] MEDS ORDERED: SODIUM CHLORIDE 0.9% 1,000 ML ONE (11:22)
[2021-03-11 12:02] LABS: GLUCOMETER DEV NAME(LOC) 5N.1C; GLUCOSE,POINT OF CARE 165 MG/DL (70-110)
[2021-03-11 12:03] LABS: GLUCOMETER DEV NAME(LOC) 5N.1C; GLUCOSE,POINT OF CARE 129 MG/DL (70-110)
[2021-03-11] MEDS ORDERED: SODIUM CHLORIDE 0.9% 1,000 ML IV ONE (12:15)
[2021-03-11] MEDS: INSULIN LISPRO 100 UNITS/ML SQ PRN ×2 (12:38→17:20)
[2021-03-11] MEDS: CefTRIAXone 1 GM/DEXTROSE 50 ML IV SCH (12:49)
[2021-03-11] MEDS: BISACODYL 10 MG RECTAL RECTAL SUPPOSITORY PR PRN (16:56)
[2021-03-11 20:43] LABS: GLUCOMETER DEV NAME(LOC) 5N.1C; GLUCOSE,POINT OF CARE 107 MG/DL (70-110)
[2021-03-11] MEDS: HYDROCODONE/ACETAMINOPHEN 5-325 MG TABLET PO PRN (20:44)
[2021-03-11] MEDS: ZOLPIDEM TARTRATE 5 MG TABLET PO PRN (20:44)
[2021-03-11] MEDS: WARFARIN SODIUM 1 MG TABLET PO SCH (20:44)
[2021-03-11] MEDS: SIMVASTATIN 20 MG TABLET PO SCH (20:44)
[2021-03-11 21:11] LABS: GLUCOMETER DEV NAME(LOC) 5S.1; GLUCOSE,POINT OF CARE 173 MG/DL (70-110)
[2021-03-12 03:56] VITALS: BP 99/46
[2021-03-12] MEDS: AZITHROMYCIN 500 MG/NS 250 ML IV SCH (05:44)
[2021-03-12] MEDS: HYDROCODONE/ACETAMINOPHEN 5-325 MG TABLET PO PRN (05:45)
[2021-03-12 05:48] LABS: GLUCOMETER DEV NAME(LOC) 5N.3; GLUCOSE,POINT OF CARE 81 MG/DL (70-110)
[2021-03-12 07:00] LABS: BASOPHILS % (AUTO) 0.6 % (0.0-2.0); EOSINOPHILS % (AUTO) 2.9 % (1.0-6.0); HEMATOCRIT 26.8 % (36-46); HEMOGLOBIN 8.5 g/dL (12.0-16.0); LYMPHOCYTES % (AUTO) 12.9 % (22.0-44.0); MEAN CORPUSCULAR HEMOGLOBIN 26.2 pg (26.0-34.0); MEAN CORPUSCULAR HGB CONC 31.7 G/dL (31.0-37.0); MEAN CORPUSCULAR VOLUME 83 fL (80-100); MONOCYTES # (AUTO) 0.9 K/uL (0.1-1.0); MONOCYTES % (AUTO) 11.3 % (2.0-9.0); NEUTROPHILS # (AUTO) 5.6 K/uL (1.8-7.7); NEUTROPHILS % (AUTO) 72.3 % (40.0-70.0); PLATELET COUNT (AUTO) 63 K/uL (150-450); RED BLOOD CELL COUNT(AUTO) 3.23 MIL/uL (4.00-5.20); RED CELL DISTRIBUTION WIDTH 17.2 % (11.5-14.5)
[2021-03-12 07:12] LABS: PROTHROMBIN TIME 19.8 SEC (9.4-11.6)
[2021-03-12 07:17] LABS: CREATININE 6.8 mg/dL (0.60-1.30); POTASSIUM 4.6 mmol/L (3.5-5.1)
[2021-03-12 07:29] VITALS: BP 88/51
[2021-03-12] MEDS: PANTOPRAZOLE SODIUM 40 MG DR TABLET PO SCH (08:46)
[2021-03-12] MEDS: DOCUSATE SODIUM 100 MG CAPSULE PO SCH ×2 (08:47→21:00)
[2021-03-12] MEDS: CALCIUM ACETATE 667 MG CAPSULE PO SCH ×2 (08:47→17:30)
[2021-03-12 08:51] VITALS: BP 99/39
[2021-03-12] MEDS ORDERED: SODIUM CHLORIDE 0.9% 2,000 ML ONE ×2 (09:38→11:39)
[2021-03-12] MEDS: NOREPINEPHRINE 4 MG/D5%-WATER 250 ML IV PRN ×2 (11:41→23:44)
[2021-03-12] MEDS ORDERED: *CLINICAL-CEFEPIME DOSING CLINICAL ONE (12:00)
[2021-03-12 12:04] VITALS: BP 101/42
[2021-03-12] MEDS ORDERED: VANCOMYCIN HCL 1 GM/D5% WATER 200 ML IV PRN (12:15)
[2021-03-12] MEDS ORDERED: VANCOMYCIN HCL 1.25 GM in DEXTROSE 5%-WATER 250 ML IV ONE (13:00)
[2021-03-12] MEDS ORDERED: CEFEPIME HCL 1 GM in DEXTROSE 5%-WATER 50 ML IV ONE (15:00)
[2021-03-12] MEDS ORDERED: SODIUM CHLORIDE 0.9% 250 ML IV ONE (15:10)
[2021-03-12] MEDS: CefTRIAXone SODIUM 2 GM in DEXTROSE 5%-WATER 50 ML IV SCH (15:14)
[2021-03-12] MEDS ORDERED: SODIUM CHLORIDE 0.9% 100 ML ONE (15:44)
[2021-03-12] MEDS ORDERED: IOHEXOL 350 MG/ML 100 ML VIAL ONE (15:44)
[2021-03-12 16:06] VITALS: BP 92/50
[2021-03-12] MEDS: INSULIN LISPRO 100 UNITS/ML SQ PRN ×2 (17:03→23:45)
[2021-03-12] MEDS ORDERED: ALBUMIN HUMAN 25%-12.5GM/50ML IV BOTTLE IV ONE (17:05)
[2021-03-12] MEDS ORDERED: SIMETHICONE 80 MG CHEWABLE TABLET CHEW ONE (19:00)
[2021-03-12 20:00] VITALS: BP 99/58
[2021-03-12] MEDS: WARFARIN SODIUM 1 MG TABLET PO SCH (21:00)
[2021-03-12] MEDS: SIMVASTATIN 20 MG TABLET PO SCH (21:00)
[2021-03-12 21:33] LABS: GLUCOSE,POINT OF CARE 183 MG/DL (70-110)
[2021-03-12 21:33] LABS: GLUCOSE,POINT OF CARE 126 MG/DL (70-110)
[2021-03-12 23:36] LABS: GLUCOSE,POINT OF CARE 230 MG/DL (70-110)
[2021-03-12] MEDS: ZOLPIDEM TARTRATE 5 MG TABLET PO PRN (23:45)
[2021-03-13] VITALS: BP 109/70
[2021-03-13] MEDS: HYDROCODONE/ACETAMINOPHEN 5-325 MG TABLET PO PRN ×2 (03:42→14:51)
[2021-03-13 04:00] VITALS: BP 96/82
[2021-03-13 06:51] LABS: BASOPHILS % (AUTO) 0.5 % (0.0-2.0); EOSINOPHILS % (AUTO) 1.2 % (1.0-6.0); HEMATOCRIT 28.7 % (36-46); HEMOGLOBIN 9.1 g/dL (12.0-16.0); LYMPHOCYTES # (AUTO) 0.7 K/uL (1.0-4.8); LYMPHOCYTES % (AUTO) 5.8 % (22.0-44.0); MEAN CORPUSCULAR HGB CONC 31.7 G/dL (31.0-37.0); MEAN CORPUSCULAR VOLUME 82 fL (80-100); MONOCYTES # (AUTO) 1.7 K/uL (0.1-1.0); MONOCYTES % (AUTO) 14.5 % (2.0-9.0); NEUTROPHILS # (AUTO) 9.3 K/uL (1.8-7.7); PLATELET COUNT (AUTO) 100 K/uL (150-450); RED CELL DISTRIBUTION WIDTH 16.9 % (11.5-14.5)
[2021-03-13] MEDS: INSULIN LISPRO 100 UNITS/ML SQ PRN (06:51)
[2021-03-13 06:56] LABS: GLUCOSE,POINT OF CARE 168 MG/DL (70-110)
[2021-03-13 07:10] LABS: ALBUMIN 3.2 g/dL (3.4-5.0); BILIRUBIN,TOTAL 0.7 mg/dL (0.1-1.0); CALCIUM, TOTAL 8.9 mg/dL (8.8-10.5); CREATININE 4.33 mg/dL (0.60-1.30); POTASSIUM 4.2 mmol/L (3.5-5.1); TOTAL PROTEIN, SERUM 7.7 g/dL (6.4-8.2)
[2021-03-13 07:31] LABS: INR 2.4 (0.9-1.1)
[2021-03-13 08:00] VITALS: BP 100/63
[2021-03-13] MEDS: NOREPINEPHRINE 4 MG/D5%-WATER 250 ML IV PRN ×3 (09:37→20:13)
[2021-03-13] MEDS: EPOETIN ALFA 10,000 UNITS/ML 2 ML VIAL SQ SCH (09:38)
[2021-03-13] MEDS: PANTOPRAZOLE SODIUM 40 MG DR TABLET PO SCH (09:38)
[2021-03-13] MEDS: CALCIUM ACETATE 667 MG CAPSULE PO SCH (09:38)
[2021-03-13] MEDS: DOCUSATE SODIUM 100 MG CAPSULE PO SCH ×2 (09:38→20:12)
[2021-03-13] MEDS ORDERED: BENZOCAINE 20% 50 MCG/SPRAY 57 GM ONE (10:29)
[2021-03-13] MEDS ORDERED: MIDAZOLAM HCL 2 MG/2 ML VIAL ONE (11:11)
[2021-03-13] MEDS ORDERED: FentaNYL CITRATE PF 100 MCG/2 ML VIAL ONE (11:11)
[2021-03-13] MEDS ORDERED: PHENYLEPHRINE 200 MG/D5%-WATER 250 ML IV PRN (11:30)
[2021-03-13 12:00] VITALS: BP 91/64
[2021-03-13] MEDS ORDERED: MIDAZOLAM HCL 2 MG/2 ML VIAL IVP ONE (12:30)
[2021-03-13] MEDS ORDERED: FentaNYL CITRATE PF 100 MCG/2 ML VIAL IVP ONE (12:30)
[2021-03-13 13:09] LABS: C-REACTIVE PROTEIN QUANT 13.29 mg/dL (0.00-0.30)
[2021-03-13 13:32] LABS: GLUCOSE,POINT OF CARE 120 MG/DL (70-110)
[2021-03-13] MEDS: CefTRIAXone SODIUM 2 GM in DEXTROSE 5%-WATER 50 ML IV SCH (14:44)
[2021-03-13] MEDS: ETHYL ALCOHOL 62% ANTISEPTIC NASAL INHALANT 0.6 ML AMPUL NASAL SCH ×2 (14:44→20:11)
[2021-03-13 16:00] VITALS: BP 104/66
[2021-03-13] MEDS ORDERED: CEFEPIME HCL 0.5 GM in DEXTROSE 5%-WATER 50 ML IV SCH (16:00)
[2021-03-13 17:31] LABS: GLUCOSE,POINT OF CARE 194 MG/DL (70-110)
[2021-03-13 20:00] VITALS: BP 88/42
[2021-03-13] MEDS: BISACODYL 10 MG RECTAL RECTAL SUPPOSITORY PR PRN (20:12)
[2021-03-13] MEDS: ACETAMINOPHEN 325 MG TABLET PO PRN (20:12)
[2021-03-13] MEDS: SIMVASTATIN 20 MG TABLET PO SCH (20:12)
[2021-03-13] MEDS: WARFARIN SODIUM 1 MG TABLET PO SCH (21:10)
[2021-03-14] VITALS (7 sets, daily range): BP systolic 82–103; BP diastolic 44–60
[2021-03-14] MEDS: HYDROCODONE/ACETAMINOPHEN 5-325 MG TABLET PO PRN ×4 (02:54→22:03)
[2021-03-14 05:33] LABS: BASOPHILS % (AUTO) 0.8 % (0.0-2.0); EOSINOPHILS % (AUTO) 4.4 % (1.0-6.0); HEMATOCRIT 29.7 % (36-46); HEMOGLOBIN 9.4 g/dL (12.0-16.0); MEAN CORPUSCULAR HEMOGLOBIN 26.3 pg (26.0-34.0); MEAN CORPUSCULAR HGB CONC 31.8 G/dL (31.0-37.0); MEAN CORPUSCULAR VOLUME 83 fL (80-100); MONOCYTES # (AUTO) 1.4 K/uL (0.1-1.0); MONOCYTES % (AUTO) 15.1 % (2.0-9.0); NEUTROPHILS # (AUTO) 6.2 K/uL (1.8-7.7); NEUTROPHILS % (AUTO) 68.7 % (40.0-70.0); PLATELET COUNT (AUTO) 121 K/uL (150-450); RED BLOOD CELL COUNT(AUTO) 3.59 MIL/uL (4.00-5.20); RED CELL DISTRIBUTION WIDTH 16.9 % (11.5-14.5)
[2021-03-14 05:39] LABS: INR 3.3 (0.9-1.1); PROTHROMBIN TIME 31.9 SEC (9.4-11.6)
[2021-03-14 05:42] LABS: ALBUMIN 3.1 g/dL (3.4-5.0); BILIRUBIN,TOTAL 0.6 mg/dL (0.1-1.0); CALCIUM, TOTAL 9.5 mg/dL (8.8-10.5); CREATININE 5.91 mg/dL (0.60-1.30); POTASSIUM 4.7 mmol/L (3.5-5.1); TOTAL PROTEIN, SERUM 7.6 g/dL (6.4-8.2)
[2021-03-14] MEDS: PANTOPRAZOLE SODIUM 40 MG DR TABLET PO SCH (08:32)
[2021-03-14] MEDS: MORPHINE SULFATE 2 MG/ML SYRINGE IVP PRN ×3 (08:32→19:45)
[2021-03-14] MEDS: DOCUSATE SODIUM 100 MG CAPSULE PO SCH ×2 (08:32→21:13)
[2021-03-14] MEDS: MAGNESIUM HYDROXIDE SUSPENSION 30 ML UDCUP PO PRN (08:32)
[2021-03-14] MEDS: ETHYL ALCOHOL 62% ANTISEPTIC NASAL INHALANT 0.6 ML AMPUL NASAL SCH ×2 (08:33→21:13)
[2021-03-14] MEDS: INSULIN LISPRO 100 UNITS/ML SQ PRN ×3 (08:34→18:43)
[2021-03-14 08:43] LABS: GLUCOSE,POINT OF CARE 140 MG/DL (70-110)
[2021-03-14 08:43] LABS: GLUCOSE,POINT OF CARE 161 MG/DL (70-110)
[2021-03-14] MEDS ORDERED: *CLINICAL-GENTAMICIN DOSING CLINICAL ONE (12:30)
[2021-03-14] MEDS: NOREPINEPHRINE 4 MG/D5%-WATER 250 ML IV PRN (13:28)
[2021-03-14] MEDS ORDERED: GENTAMICIN SULFATE IV ONE (14:00)
[2021-03-14] MEDS ORDERED: GENTAMICIN 60 MG/NACL ISO-OSM 50 ML IV ONE (14:00)
[2021-03-14] MEDS ORDERED: WATER IV ONE (14:00)
[2021-03-14] MEDS ORDERED: DEXTROSE 5% IV ONE (14:00)
[2021-03-14] MEDS: CefTRIAXone SODIUM 2 GM in DEXTROSE 5%-WATER 50 ML IV SCH (16:04)
[2021-03-14] MEDS ORDERED: *CLINICAL-WARFARIN SODIUM DOSING CLINICAL ONE (17:00)
[2021-03-14] MEDS ORDERED: WARFARIN SODIUM-INR 2.0-3.0-RX DOSING PER PROTOCOL PO PRN (17:00)
[2021-03-14 17:01] LABS: GLUCOSE,POINT OF CARE 207 MG/DL (70-110)
[2021-03-14] MEDS: ONDANSETRON HCL 4 MG/2 ML VIAL IVP PRN (19:55)
[2021-03-14] MEDS: SIMVASTATIN 20 MG TABLET PO SCH (21:13)
[2021-03-14] MEDS ORDERED: SODIUM CHLORIDE 0.9% 2,000 ML ONE (22:23)
[2021-03-15] VITALS (8 sets, daily range): BP systolic 116–146; BP diastolic 36–72
[2021-03-15 05:30] LABS: BASOPHILS % (AUTO) 0.6 % (0.0-2.0); EOSINOPHILS % (AUTO) 2.6 % (1.0-6.0); HEMATOCRIT 28.5 % (36-46); HEMOGLOBIN 9.2 g/dL (12.0-16.0); LYMPHOCYTES # (AUTO) 0.5 K/uL (1.0-4.8); LYMPHOCYTES % (AUTO) 5.4 % (22.0-44.0); MEAN CORPUSCULAR HEMOGLOBIN 26.3 pg (26.0-34.0); MEAN CORPUSCULAR HGB CONC 32.4 G/dL (31.0-37.0); MEAN CORPUSCULAR VOLUME 81 fL (80-100); MONOCYTES # (AUTO) 1.4 K/uL (0.1-1.0); MONOCYTES % (AUTO) 14.5 % (2.0-9.0); NEUTROPHILS # (AUTO) 7.4 K/uL (1.8-7.7); NEUTROPHILS % (AUTO) 76.9 % (40.0-70.0); PLATELET COUNT (AUTO) 145 K/uL (150-450); RED BLOOD CELL COUNT(AUTO) 3.51 MIL/uL (4.00-5.20); RED CELL DISTRIBUTION WIDTH 17.4 % (11.5-14.5)
[2021-03-15 05:46] LABS: ALBUMIN 2.9 g/dL (3.4-5.0); BILIRUBIN,TOTAL 0.6 mg/dL (0.1-1.0); CALCIUM, TOTAL 8.9 mg/dL (8.8-10.5); CREATININE 3.69 mg/dL (0.60-1.30); TOTAL PROTEIN, SERUM 7.4 g/dL (6.4-8.2)
[2021-03-15 07:05] LABS: GLUCOSE,POINT OF CARE 117 MG/DL (70-110)
[2021-03-15 07:05] LABS: GLUCOSE,POINT OF CARE 158 MG/DL (70-110)
[2021-03-15 07:05] LABS: GLUCOSE,POINT OF CARE 148 MG/DL (70-110)
[2021-03-15] MEDS: DOCUSATE SODIUM 100 MG CAPSULE PO SCH ×2 (08:42→20:49)
[2021-03-15] MEDS: PANTOPRAZOLE SODIUM 40 MG DR TABLET PO SCH (08:42)
[2021-03-15] MEDS: ETHYL ALCOHOL 62% ANTISEPTIC NASAL INHALANT 0.6 ML AMPUL NASAL SCH ×2 (08:42→20:48)
[2021-03-15] MEDS: -POST HEMODIALYSIS NOTE- MISC SCH (09:08)
[2021-03-15 11:53] LABS: GLUCOSE,POINT OF CARE 208 MG/DL (70-110)
[2021-03-15] MEDS: SIMETHICONE 80 MG CHEWABLE TABLET CHEW PRN (15:10)
[2021-03-15] MEDS: CefTRIAXone SODIUM 2 GM in DEXTROSE 5%-WATER 50 ML IV SCH (15:12)
[2021-03-15] MEDS ORDERED: WARFARIN SODIUM 1 MG TABLET PO SCH (17:00)
[2021-03-15] MEDS: INSULIN LISPRO 100 UNITS/ML SQ PRN (17:07)
[2021-03-15 19:01] LABS: GLUCOSE,POINT OF CARE 178 MG/DL (70-110)
[2021-03-15] MEDS: ONDANSETRON HCL 4 MG/2 ML VIAL IVP PRN (20:49)
[2021-03-15] MEDS: MORPHINE SULFATE 2 MG/ML SYRINGE IVP PRN (20:49)
[2021-03-15] MEDS: SIMVASTATIN 20 MG TABLET PO SCH (20:49)
[2021-03-15] MEDS: ZOLPIDEM TARTRATE 5 MG TABLET PO PRN (20:49)
[2021-03-16] VITALS (7 sets, daily range): BP systolic 94–142; BP diastolic 42–82
[2021-03-16] MEDS: INSULIN LISPRO 100 UNITS/ML SQ PRN ×3 (00:55→17:28)
[2021-03-16] MEDS: ACETAMINOPHEN 325 MG TABLET PO PRN (04:08)
[2021-03-16 06:02] LABS: GLUCOMETER DEV NAME(LOC) 5S.1; GLUCOSE,POINT OF CARE 155 MG/DL (70-110)
[2021-03-16 07:52] LABS: BASOPHILS % (AUTO) 0.8 % (0.0-2.0); EOSINOPHILS % (AUTO) 3.9 % (1.0-6.0); HEMATOCRIT 28.5 % (36-46); HEMOGLOBIN 9.1 g/dL (12.0-16.0); LYMPHOCYTES # (AUTO) 0.6 K/uL (1.0-4.8); LYMPHOCYTES % (AUTO) 7.9 % (22.0-44.0); MEAN CORPUSCULAR HEMOGLOBIN 26.4 pg (26.0-34.0); MEAN CORPUSCULAR HGB CONC 31.8 G/dL (31.0-37.0); MEAN CORPUSCULAR VOLUME 83 fL (80-100); MONOCYTES # (AUTO) 1.2 K/uL (0.1-1.0); MONOCYTES % (AUTO) 16.8 % (2.0-9.0); NEUTROPHILS # (AUTO) 5.1 K/uL (1.8-7.7); NEUTROPHILS % (AUTO) 70.6 % (40.0-70.0); PLATELET COUNT (AUTO) 144 K/uL (150-450); RED BLOOD CELL COUNT(AUTO) 3.43 MIL/uL (4.00-5.20); RED CELL DISTRIBUTION WIDTH 17.5 % (11.5-14.5)
[2021-03-16 08:04] LABS: ALBUMIN 2.8 g/dL (3.4-5.0); BILIRUBIN,TOTAL 0.5 mg/dL (0.1-1.0); CREATININE 5.67 mg/dL (0.60-1.30); POTASSIUM 4.1 mmol/L (3.5-5.1); TOTAL PROTEIN, SERUM 7.4 g/dL (6.4-8.2)
[2021-03-16 08:13] LABS: PROTHROMBIN TIME 38.9 SEC (9.4-11.6)
[2021-03-16 08:26] LABS: INR 4.1 (0.9-1.1)
[2021-03-16] MEDS: -POST HEMODIALYSIS NOTE- MISC SCH (09:00)
[2021-03-16] MEDS: HYDROCODONE/ACETAMINOPHEN 5-325 MG TABLET PO PRN ×3 (09:01→21:42)
[2021-03-16] MEDS: DOCUSATE SODIUM 100 MG CAPSULE PO SCH ×2 (09:01→20:16)
[2021-03-16] MEDS: PANTOPRAZOLE SODIUM 40 MG DR TABLET PO SCH (09:01)
[2021-03-16] MEDS: ETHYL ALCOHOL 62% ANTISEPTIC NASAL INHALANT 0.6 ML AMPUL NASAL SCH ×2 (09:07→20:15)
[2021-03-16] MEDS: MAGNESIUM HYDROXIDE SUSPENSION 30 ML UDCUP PO PRN (09:25)
[2021-03-16] MEDS: EPOETIN ALFA 10,000 UNITS/ML 2 ML VIAL SQ SCH (10:37)
[2021-03-16 11:11] LABS: GLUCOMETER DEV NAME(LOC) 5S.2B; GLUCOSE,POINT OF CARE 124 MG/DL (70-110)
[2021-03-16 15:50] LABS: AMYLASE 49 U/L (25-115); LIPASE 81 U/L (73-393)
[2021-03-16] MEDS ORDERED: SODIUM CHLORIDE 0.9% 500 ML IV ONE (17:04)
[2021-03-16] MEDS: CefTRIAXone SODIUM 2 GM in DEXTROSE 5%-WATER 50 ML IV SCH (17:12)
[2021-03-16 17:20] LABS: % IRON SATURATION 50.9 % (22-44)
[2021-03-16] MEDS: BISACODYL 10 MG RECTAL RECTAL SUPPOSITORY PR PRN (17:28)
[2021-03-16] MEDS: PANTOPRAZOLE SODIUM 40 MG/VIAL IVP SCH (20:15)
[2021-03-16] MEDS: SIMVASTATIN 20 MG TABLET PO SCH (20:16)
[2021-03-16 20:56] LABS: GLUCOMETER DEV NAME(LOC) 5S.2B; GLUCOSE,POINT OF CARE 146 MG/DL (70-110)
[2021-03-16] MEDS: SIMETHICONE 80 MG CHEWABLE TABLET CHEW PRN (21:42)
[2021-03-16 22:31] LABS: GLUCOMETER DEV NAME(LOC) 5N.1C; GLUCOSE,POINT OF CARE 196 MG/DL (70-110)
[2021-03-16 22:31] LABS: GLUCOMETER DEV NAME(LOC) 5S.1; GLUCOSE,POINT OF CARE 141 MG/DL (70-110)
[2021-03-17 04:36] VITALS: BP 140/61
[2021-03-17] MEDS: MORPHINE SULFATE 2 MG/ML SYRINGE IVP PRN (04:48)
[2021-03-17] MEDS: ONDANSETRON HCL 4 MG/2 ML VIAL IVP PRN (04:49)
[2021-03-17] MEDS ORDERED: SODIUM CHLORIDE 0.9% 1,000 ML IV ONE (05:30)
[2021-03-17] MEDS ORDERED: SODIUM CHLORIDE 0.9% 1,000 ML ONE (06:17)
[2021-03-17] MEDS ORDERED: EPINEPHrine 1:10,000 [1 MG/10 ML] SYRINGE ONE (06:40)
[2021-03-17 07:08] LABS: BASOPHILS % (AUTO) 0.7 % (0.0-2.0); EOSINOPHILS % (AUTO) 4.1 % (1.0-6.0); HEMATOCRIT 28.8 % (36-46); HEMOGLOBIN 9.3 g/dL (12.0-16.0); LYMPHOCYTES # (AUTO) 0.7 K/uL (1.0-4.8); LYMPHOCYTES % (AUTO) 9.6 % (22.0-44.0); MEAN CORPUSCULAR HEMOGLOBIN 26.5 pg (26.0-34.0); MEAN CORPUSCULAR HGB CONC 32.4 G/dL (31.0-37.0); MEAN CORPUSCULAR VOLUME 82 fL (80-100); MONOCYTES # (AUTO) 0.8 K/uL (0.1-1.0); MONOCYTES % (AUTO) 11.8 % (2.0-9.0); NEUTROPHILS # (AUTO) 5.2 K/uL (1.8-7.7); NEUTROPHILS % (AUTO) 73.8 % (40.0-70.0); PLATELET COUNT (AUTO) 169 K/uL (150-450); RED BLOOD CELL COUNT(AUTO) 3.53 MIL/uL (4.00-5.20); RED CELL DISTRIBUTION WIDTH 17.5 % (11.5-14.5)
[2021-03-17 07:19] LABS: INR 3.6 (0.9-1.1); PROTHROMBIN TIME 34.1 SEC (9.4-11.6)
[2021-03-17 07:25] LABS: ALBUMIN 3.1 g/dL (3.4-5.0); BILIRUBIN,TOTAL 0.5 mg/dL (0.1-1.0); CALCIUM, TOTAL 9.6 mg/dL (8.8-10.5); CREATININE 7.35 mg/dL (0.60-1.30); POTASSIUM 4.4 mmol/L (3.5-5.1)
[2021-03-17 08:10] VITALS: BP 129/56
[2021-03-17 08:12] VITALS: BP 124/51
[2021-03-17] MEDS: ETHYL ALCOHOL 62% ANTISEPTIC NASAL INHALANT 0.6 ML AMPUL NASAL SCH ×2 (08:16→21:06)
[2021-03-17] MEDS: PANTOPRAZOLE SODIUM 40 MG/VIAL IVP SCH ×2 (08:16→20:54)
[2021-03-17] MEDS: DOCUSATE SODIUM 100 MG CAPSULE PO SCH ×2 (08:20→21:00)
[2021-03-17] MEDS: SIMETHICONE 80 MG CHEWABLE TABLET CHEW PRN ×2 (09:24→21:05)
[2021-03-17 11:57] VITALS: BP 135/46
[2021-03-17] MEDS: GENTAMICIN 60 MG/NACL ISO-OSM 50 ML IV PRN (13:37)
[2021-03-17 15:11] VITALS: BP 113/60
[2021-03-17] MEDS: CefTRIAXone SODIUM 2 GM in DEXTROSE 5%-WATER 50 ML IV SCH (15:12)
[2021-03-17] MEDS: INSULIN LISPRO 100 UNITS/ML SQ PRN ×2 (17:21→21:05)
[2021-03-17 19:58] LABS: GLUCOMETER DEV NAME(LOC) 5S.1; GLUCOSE,POINT OF CARE 177 MG/DL (70-110)
[2021-03-17 20:40] VITALS: BP 113/41
[2021-03-17] MEDS: ZOLPIDEM TARTRATE 5 MG TABLET PO PRN (20:54)
[2021-03-17] MEDS: SIMVASTATIN 20 MG TABLET PO SCH (20:54)
[2021-03-18] VITALS (7 sets, daily range): BP systolic 96–126; BP diastolic 39–57
[2021-03-18] MEDS: SIMETHICONE 80 MG CHEWABLE TABLET CHEW PRN ×2 (04:07→18:10)
[2021-03-18 04:31] LABS: GLUCOMETER DEV NAME(LOC) 5S.2B; GLUCOSE,POINT OF CARE 171 MG/DL (70-110)
[2021-03-18 04:31] LABS: GLUCOMETER DEV NAME(LOC) 5S.2B; GLUCOSE,POINT OF CARE 117 MG/DL (70-110)
[2021-03-18 04:31] LABS: GLUCOMETER DEV NAME(LOC) 5S.2B; GLUCOSE,POINT OF CARE 127 MG/DL (70-110)
[2021-03-18 06:32] LABS: GLUCOMETER DEV NAME(LOC) 5S.2B; GLUCOSE,POINT OF CARE 110 MG/DL (70-110)
[2021-03-18 07:17] LABS: BASOPHILS % (AUTO) 0.9 % (0.0-2.0); EOSINOPHILS % (AUTO) 3.4 % (1.0-6.0); HEMATOCRIT 28.4 % (36-46); HEMOGLOBIN 9.2 g/dL (12.0-16.0); LYMPHOCYTES # (AUTO) 0.8 K/uL (1.0-4.8); LYMPHOCYTES % (AUTO) 10.3 % (22.0-44.0); MEAN CORPUSCULAR HEMOGLOBIN 26.6 pg (26.0-34.0); MEAN CORPUSCULAR HGB CONC 32.6 G/dL (31.0-37.0); MEAN CORPUSCULAR VOLUME 82 fL (80-100); MONOCYTES # (AUTO) 0.9 K/uL (0.1-1.0); MONOCYTES % (AUTO) 11.9 % (2.0-9.0); NEUTROPHILS # (AUTO) 5.4 K/uL (1.8-7.7); NEUTROPHILS % (AUTO) 73.5 % (40.0-70.0); PLATELET COUNT (AUTO) 149 K/uL (150-450); RED BLOOD CELL COUNT(AUTO) 3.47 MIL/uL (4.00-5.20); RED CELL DISTRIBUTION WIDTH 17.7 % (11.5-14.5)
[2021-03-18 07:29] LABS: INR 3.4 (0.9-1.1); PROTHROMBIN TIME 32.4 SEC (9.4-11.6)
[2021-03-18 07:46] LABS: BILIRUBIN,TOTAL 0.5 mg/dL (0.1-1.0); CALCIUM, TOTAL 9.1 mg/dL (8.8-10.5); CREATININE 4.83 mg/dL (0.60-1.30); POTASSIUM 4.1 mmol/L (3.5-5.1); TOTAL PROTEIN, SERUM 7.8 g/dL (6.4-8.2)
[2021-03-18] MEDS: HYDROCODONE/ACETAMINOPHEN 5-325 MG TABLET PO PRN ×2 (08:45→22:46)
[2021-03-18] MEDS: ETHYL ALCOHOL 62% ANTISEPTIC NASAL INHALANT 0.6 ML AMPUL NASAL SCH ×2 (08:46→21:09)
[2021-03-18] MEDS: DOCUSATE SODIUM 100 MG CAPSULE PO SCH ×2 (08:46→21:00)
[2021-03-18] MEDS: PANTOPRAZOLE SODIUM 40 MG/VIAL IVP SCH ×2 (08:46→21:10)
[2021-03-18] MEDS: EPOETIN ALFA 10,000 UNITS/ML 2 ML VIAL SQ SCH (08:46)
[2021-03-18] MEDS: -POST HEMODIALYSIS NOTE- MISC SCH ×2 (08:47→09:32)
[2021-03-18 12:24] LABS: GLUCOMETER DEV NAME(LOC) 5S.1; GLUCOSE,POINT OF CARE 149 MG/DL (70-110)
[2021-03-18] MEDS: CefTRIAXone SODIUM 2 GM in DEXTROSE 5%-WATER 50 ML IV SCH (15:32)
[2021-03-18] MEDS: ACETAMINOPHEN 325 MG TABLET PO PRN (18:07)
[2021-03-18] MEDS: SIMVASTATIN 20 MG TABLET PO SCH (21:09)
[2021-03-18] MEDS: INSULIN LISPRO 100 UNITS/ML SQ PRN (21:11)
[2021-03-18] MEDS: ZOLPIDEM TARTRATE 5 MG TABLET PO PRN (22:06)
[2021-03-19 00:11] VITALS: BP 124/55
[2021-03-19 03:35] VITALS: BP 125/53
[2021-03-19] MEDS: ACETAMINOPHEN 325 MG TABLET PO PRN (05:50)
[2021-03-19] MEDS: INSULIN LISPRO 100 UNITS/ML SQ PRN ×3 (05:50→22:26)
[2021-03-19 06:57] LABS: INR 2.7 (0.9-1.1); PROTHROMBIN TIME 26.4 SEC (9.4-11.6)
[2021-03-19 07:29] VITALS: BP 106/59
[2021-03-19 08:21] LABS: GLUCOMETER DEV NAME(LOC) 5N.1C; GLUCOSE,POINT OF CARE 148 MG/DL (70-110)
[2021-03-19 08:21] LABS: GLUCOMETER DEV NAME(LOC) 5N.1C; GLUCOSE,POINT OF CARE 140 MG/DL (70-110)
[2021-03-19 08:21] LABS: GLUCOMETER DEV NAME(LOC) 5N.1C; GLUCOSE,POINT OF CARE 180 MG/DL (70-110)
[2021-03-19] MEDS: DOCUSATE SODIUM 100 MG CAPSULE PO SCH ×2 (08:39→21:57)
[2021-03-19] MEDS: ETHYL ALCOHOL 62% ANTISEPTIC NASAL INHALANT 0.6 ML AMPUL NASAL SCH ×2 (08:39→21:57)
[2021-03-19] MEDS: -POST HEMODIALYSIS NOTE- MISC SCH (08:40)
[2021-03-19] MEDS: PANTOPRAZOLE SODIUM 40 MG/VIAL IVP SCH ×2 (08:40→21:57)
[2021-03-19 11:01] VITALS: BP 120/52
[2021-03-19 15:17] VITALS: BP 112/58
[2021-03-19] MEDS: CefTRIAXone SODIUM 2 GM in DEXTROSE 5%-WATER 50 ML IV SCH (15:58)
[2021-03-19] MEDS ORDERED: WARFARIN SODIUM 1 MG TABLET PO SCH (17:00)
[2021-03-19 17:21] LABS: GLUCOMETER DEV NAME(LOC) 5S.2B; GLUCOSE,POINT OF CARE 170 MG/DL (70-110)
[2021-03-19] MEDS: SIMVASTATIN 20 MG TABLET PO SCH (21:57)
[2021-03-19] MEDS: GENTAMICIN 60 MG/NACL ISO-OSM 50 ML IV PRN (21:58)
[2021-03-19] MEDS: ZOLPIDEM TARTRATE 5 MG TABLET PO PRN (22:25)
[2021-03-19 22:31] LABS: GLUCOMETER DEV NAME(LOC) 5N.3; GLUCOSE,POINT OF CARE 120 MG/DL (70-110)
[2021-03-19 23:28] LABS: GLUCOMETER DEV NAME(LOC) 5S.2B; GLUCOSE,POINT OF CARE 187 MG/DL (70-110)
[2021-03-19 23:30] VITALS: BP 109/63
[2021-03-20 03:07] VITALS: BP 134/54
[2021-03-20 05:51] LABS: INR 2.5 (0.9-1.1); PROTHROMBIN TIME 24.3 SEC (9.4-11.6)
[2021-03-20] MEDS: INSULIN LISPRO 100 UNITS/ML SQ PRN ×3 (06:14→17:43)
[2021-03-20 06:54] LABS: GLUCOMETER DEV NAME(LOC) 5N.3; GLUCOSE,POINT OF CARE 166 MG/DL (70-110)
[2021-03-20 07:25] VITALS: BP 111/38
[2021-03-20] MEDS: PANTOPRAZOLE SODIUM 40 MG/VIAL IVP SCH (08:25)
[2021-03-20] MEDS: EPOETIN ALFA 10,000 UNITS/ML 2 ML VIAL SQ SCH (08:25)
[2021-03-20] MEDS: DOCUSATE SODIUM 100 MG CAPSULE PO SCH (08:25)
[2021-03-20] MEDS: ETHYL ALCOHOL 62% ANTISEPTIC NASAL INHALANT 0.6 ML AMPUL NASAL SCH (08:25)
[2021-03-20] MEDS: -POST HEMODIALYSIS NOTE- MISC SCH (09:00)
[2021-03-20 11:35] VITALS: BP 116/46
[2021-03-20 15:17] VITALS: BP 105/54
[2021-03-20] MEDS: CefTRIAXone SODIUM 2 GM in DEXTROSE 5%-WATER 50 ML IV SCH (15:24)
[2021-03-20] MEDS ORDERED: SODIUM CHLORIDE 0.9% 250 ML IV ONE (15:26)
[2021-03-20 15:49] VITALS: BP 117/51
[2021-03-20] MEDS ORDERED: WARFARIN SODIUM 1 MG TABLET PO SCH (17:00)
[2021-03-20] MEDS ORDERED: CEFX2I IV (17:11)
[2021-03-20] MEDS ORDERED: GENT70PI2 IV (17:17)
[2021-03-20 17:48] LABS: GLUCOMETER DEV NAME(LOC) 5N.1C; GLUCOSE,POINT OF CARE 186 MG/DL (70-110)
[2021-03-21 00:02] LABS: GLUCOMETER DEV NAME(LOC) 5N.3; GLUCOSE,POINT OF CARE 166 MG/DL (70-110)
== END 2021-03-20 18:55 | disposition home health service (06) | DRG 314 ==
LOC: EMS 10:26 → 5N 14:12 → ICU 03-12 10:30 → 5S 03-15 18:45
PROVIDERS: ADMIT Internal Medicine; ATTEND Internal Medicine
PROC: 5A1D70Z Performance of Urinary Filtration, Intermittent, Less than 6 Hours Per Day (ICD-10-PCS; 2021-03-10)
PROC: 5A1D70Z Performance of Urinary Filtration, Intermittent, Less than 6 Hours Per Day (ICD-10-PCS; 2021-03-14)
PROC: 5A1D70Z Performance of Urinary Filtration, Intermittent, Less than 6 Hours Per Day (ICD-10-PCS; 2021-03-17)
PROC: 0DJ08ZZ Inspection of Upper Intestinal Tract, Via Natural or Artificial Opening Endoscopic (ICD-10-PCS; principal; 2021-03-17 07:00)
PROC: 5A1D70Z Performance of Urinary Filtration, Intermittent, Less than 6 Hours Per Day (ICD-10-PCS; 2021-03-19)
DX: T82.6XXA Infection and inflammatory reaction due to cardiac valve prosthesis, initial encounter (principal); A40.8 Other streptococcal sepsis; N18.6 End stage renal disease; J18.9 Pneumonia, unspecified organism; R65.21 Severe sepsis with septic shock; I13.2 Hypertensive heart and chronic kidney disease with heart failure and with stage 5 chronic kidney disease, or end stage renal disease; I50.30 Unspecified diastolic (congestive) heart failure; D68.9 Coagulation defect, unspecified; E87.1 Hypo-osmolality and hyponatremia; I42.8 Other cardiomyopathies; Y83.1 Surgical operation with implant of artificial internal device as the cause of abnormal reaction of the patient, or of later complication, without mention of misadventure at the time of the procedure; I35.1 Nonrheumatic aortic (valve) insufficiency; I48.91 Unspecified atrial fibrillation; I49.5 Sick sinus syndrome; E11.21 Type 2 diabetes mellitus with diabetic nephropathy; E83.39 Other disorders of phosphorus metabolism; K20.90 Esophagitis, unspecified without bleeding; E11.22 Type 2 diabetes mellitus with diabetic chronic kidney disease; E78.5 Hyperlipidemia, unspecified; D63.1 Anemia in chronic kidney disease; I25.10 Atherosclerotic heart disease of native coronary artery without angina pectoris; Z20.822 Contact with and (suspected) exposure to COVID-19; Z86.73 Personal history of transient ischemic attack (TIA), and cerebral infarction without residual deficits; Z95.0 Presence of cardiac pacemaker; Z99.2 Dependence on renal dialysis; Y92.89 Other specified places as the place of occurrence of the external cause; Z79.01 Long term (current) use of anticoagulants; Z79.899 Other long term (current) drug therapy
CPT/HCPCS: 36245; 36569; 71045; 74177; 76937; 80048; 80053; 82150; 82728; 82962; 83540; 83550; 83605; 83690; 83880; 84484; 85025; 85610; 86140; 86677; 86850; 86870; 86900; 86901; 87040; 87077; 87081; 87186; 87205; 87340; 87804; 90935; 93005; 93306; 93308; 93312; 99285; C9113; G0378; J0171; J0456; J0692; J0696; J0885; J1580; J2250; J2270; J2370; J2405; J3010; J3370; J3490; J7030; J7040; J7050; J7060; P9047; Q9967; 36415-L1; 36415-TC; U0003

== ENCOUNTER 2021-04-01 01:47 | Emergency (ER) | payer MEDICARE, MEDICAID ==
[~2021-04-01] VITALS: Ht 154.9 cm; Wt 61.3 kg
[~2021-04-01 01:47] MED LIST changes: +CEFX2I IV; +GENT70PI2 IV; +LACT30L PO; +SEVE800T7 PO; -WARF3TAB8 PO
[2021-04-01 03:16] VITALS: BP 115/70
== END 2021-04-01 03:34 | disposition home or self-care (01) ==
LOC: EMS 01:47
DX: T82.534A Leakage of infusion catheter, initial encounter (principal); E11.22 Type 2 diabetes mellitus with diabetic chronic kidney disease; N18.6 End stage renal disease; Z99.2 Dependence on renal dialysis
CPT/HCPCS: 99282; Z7502

== ENCOUNTER 2021-04-24 16:21 | Emergency (ER) | payer MEDICARE, MEDICAID ==
[~2021-04-24] VITALS: Ht 152.4 cm; Wt 61.0 kg
[2021-04-25 21:27] VITALS: BP 110/76
[2021-04-26 00:25] VITALS: BP 142/82
== END 2021-04-24 17:30 | disposition home or self-care (01) ==
LOC: EMS 16:23
DX: Z45.2 Encounter for adjustment and management of vascular access device (principal); E11.22 Type 2 diabetes mellitus with diabetic chronic kidney disease; N18.6 End stage renal disease; Z79.899 Other long term (current) drug therapy; Z99.2 Dependence on renal dialysis
CPT/HCPCS: 99281; Z7502

== ENCOUNTER 2021-04-24 20:27 | Inpatient (IN) | payer MEDICARE, MEDICAID ==
[~2021-04-24] VITALS: Ht 152.4 cm; Wt 57.4 kg
[2021-04-24 22:27] LABS: COVID AG,FIA SOURCE NASOPHARYNGEAL
[2021-04-24] MEDS ORDERED: ACETAMINOPHEN 500 MG TABLET PO ONE (22:30)
[2021-04-24 23:13] LABS: BASOPHILS % (AUTO) 0.5 % (0.0-2.0); EOSINOPHILS % (AUTO) 0.4 % (1.0-6.0); HEMATOCRIT 29.2 % (36-46); HEMOGLOBIN 9.3 g/dL (12.0-16.0); LYMPHOCYTES # (AUTO) 0.7 K/uL (1.0-4.8); LYMPHOCYTES % (AUTO) 15.1 % (22.0-44.0); MEAN CORPUSCULAR HEMOGLOBIN 25.5 pg (26.0-34.0); MEAN CORPUSCULAR HGB CONC 31.7 G/dL (31.0-37.0); MEAN CORPUSCULAR VOLUME 80 fL (80-100); MONOCYTES # (AUTO) 0.6 K/uL (0.1-1.0); MONOCYTES % (AUTO) 14.4 % (2.0-9.0); NEUTROPHILS % (AUTO) 69.6 % (40.0-70.0); RED BLOOD CELL COUNT(AUTO) 3.63 MIL/uL (4.00-5.20); RED CELL DISTRIBUTION WIDTH 17.2 % (11.5-14.5)
[2021-04-24 23:26] LABS: INR 1.3 (0.9-1.1); PROTHROMBIN TIME 13.7 SEC (9.4-11.6)
[2021-04-24 23:31] LABS: CALCIUM, TOTAL 8.8 mg/dL (8.8-10.5); CREATININE 6.68 mg/dL (0.60-1.30); POTASSIUM 3.9 mmol/L (3.5-5.1)
[2021-04-24 23:37] LABS: ALBUMIN 3.4 g/dL (3.4-5.0); BILIRUBIN,TOTAL 0.9 mg/dL (0.1-1.0); TOTAL PROTEIN, SERUM 8.8 g/dL (6.4-8.2)
[2021-04-25 00:03] LABS: LACTIC ACID 1.2 mmol/L (0.4-2.0)
[2021-04-25 00:49] LABS: D-DIMER 2.21 mg/L FEU (0.00-0.50)
[2021-04-25 00:51] LABS: PLATELET COUNT (AUTO) 72 K/uL (150-450)
[2021-04-25 01:32] LABS: C-REACTIVE PROTEIN QUANT 2.78 mg/dL (0.00-0.30)
[2021-04-25] MEDS ORDERED: AZITHROMYCIN 500 MG/NS 250 ML IV ONE (02:15)
[2021-04-25] MEDS ORDERED: CefTRIAXone 1 GM/DEXTROSE 50 ML IV ONE (02:15)
[2021-04-25 04:15] LABS: COVID AG,FIA SOURCE NASOPHARYNGEAL
[2021-04-25 04:39] LABS: INFLUENZA TYPE A NEGATIVE FOR TYPE A (NEGATIVE); INFLUENZA TYPE B NEGATIVE FOR TYPE B (NEGATIVE)
[2021-04-25] MEDS ORDERED: BENZONATATE 100 MG CAPSULE PO PRN (04:45)
[2021-04-25] MEDS ORDERED: *CLINICAL-WARFARIN SODIUM DOSING CLINICAL ONE (05:30)
[2021-04-25] MEDS ORDERED: HEPARIN SODIUM,PORCINE 5,000 UNITS/ML VIAL IVP PRN (05:30)
[2021-04-25] MEDS ORDERED: DEXTROSE 50%-WATER 25 GM/50 ML SYRINGE IVP PRN (05:30)
[2021-04-25] MEDS ORDERED: HEPARIN SODIUM,PORCINE 5,000 UNITS/ML VIAL IVP ONE (05:30)
[2021-04-25 05:35] LABS: EOSINOPHILS % (AUTO) 1.2 % (1.0-6.0); HEMATOCRIT 27.1 % (36-46); HEMOGLOBIN 8.8 g/dL (12.0-16.0); LYMPHOCYTES # (AUTO) 0.8 K/uL (1.0-4.8); LYMPHOCYTES % (AUTO) 28.1 % (22.0-44.0); MEAN CORPUSCULAR HGB CONC 32.3 G/dL (31.0-37.0); MEAN CORPUSCULAR VOLUME 80 fL (80-100); MONOCYTES # (AUTO) 0.5 K/uL (0.1-1.0); MONOCYTES % (AUTO) 18.8 % (2.0-9.0); NEUTROPHILS # (AUTO) 1.5 K/uL (1.8-7.7); NEUTROPHILS % (AUTO) 50.9 % (40.0-70.0); PLATELET COUNT (AUTO) 64 K/uL (150-450); RED BLOOD CELL COUNT(AUTO) 3.38 MIL/uL (4.00-5.20)
[2021-04-25 05:44] LABS: INR 1.4 (0.9-1.1); PROTHROMBIN TIME 14.2 SEC (9.4-11.6)
[2021-04-25] MEDS ORDERED: CefTAZidime PENTAHYDRATE 1 GM in DEXTROSE 5%-WATER 50 ML IV PRN (05:45)
[2021-04-25] MEDS ORDERED: VANCOMYCIN HCL 1 GM/D5% WATER 200 ML IV PRN (05:45)
[2021-04-25] MEDS ORDERED: *CLINICAL-CEFTAZIDIME DOSING CLINICAL ONE (05:45)
[2021-04-25] MEDS ORDERED: CefTAZidime PENTAHYDRATE 1 GM in DEXTROSE 5%-WATER 50 ML IV ONE ×2 (06:00→08:00)
[2021-04-25] MEDS ORDERED: VANCOMYCIN HCL 1.25 GM in DEXTROSE 5%-WATER 250 ML IV ONE (06:00)
[2021-04-25] MEDS ORDERED: WARFARIN SODIUM-INR 2.5-3.5-RX DOSING PER PROTOCOL PO PRN (06:15)
[2021-04-25] MEDS: SEVELAMER CARBONATE 800 MG TABLET PO SCH ×3 (08:32→17:54)
[2021-04-25] MEDS: CALCIUM ACETATE 667 MG CAPSULE PO SCH ×2 (08:32→17:54)
[2021-04-25] MEDS ORDERED: -POST HEMODIALYSIS NOTE- MISC SCH (09:00)
[2021-04-25] MEDS ORDERED: CefTRIAXone SODIUM 2 GM/VIAL IV SCH (09:00)
[2021-04-25] MEDS: HEPARIN SODIUM 25000 UNITS/D5W 250 ML IV PRN (09:43)
[2021-04-25] MEDS: OMEPRAZOLE 20 MG CAPSULE PO SCH (09:52)
[2021-04-25] MEDS: LACTULOSE 20 GM/30 ML SOLUTION UDCUP PO SCH ×2 (09:52→22:03)
[2021-04-25] MEDS: ASPIRIN 81 MG CHEWABLE TABLET PO SCH (09:52)
[2021-04-25] MEDS: ATORVASTATIN CALCIUM 20 MG TABLET PO SCH (09:52)
[2021-04-25] MEDS: METOPROLOL TARTRATE 25 MG TABLET PO SCH ×2 (09:53→22:02)
[2021-04-25] MEDS ORDERED: WARFARIN SODIUM 5 MG TABLET PO ONE (17:00)
[2021-04-25] MEDS ORDERED: REMDESIVIR 200 MG in SODIUM CHLORIDE 0.9% 250 ML IV ONE (20:00)
[2021-04-25] MEDS ORDERED: SIMVASTATIN 20 MG TABLET PO SCH (21:00)
[2021-04-25 21:27] VITALS: BP 110/76
[2021-04-25] MEDS ORDERED: SODIUM CHLORIDE 0.9% 250 ML IV ONE (21:56)
[2021-04-26] VITALS (15 sets, daily range): BP systolic 106–154; BP diastolic 52–82
[2021-04-26] MEDS ORDERED: BENZONATATE 100 MG CAPSULE PO ONE (01:00)
[2021-04-26 07:03] LABS: EOSINOPHILS % (AUTO) 1.4 % (1.0-6.0); HEMATOCRIT 29.9 % (36-46); HEMOGLOBIN 9.6 g/dL (12.0-16.0); LYMPHOCYTES % (AUTO) 26.8 % (22.0-44.0); MEAN CORPUSCULAR HEMOGLOBIN 25.4 pg (26.0-34.0); MEAN CORPUSCULAR HGB CONC 32.2 G/dL (31.0-37.0); MEAN CORPUSCULAR VOLUME 79 fL (80-100); MONOCYTES # (AUTO) 0.5 K/uL (0.1-1.0); MONOCYTES % (AUTO) 14.7 % (2.0-9.0); NEUTROPHILS % (AUTO) 56.1 % (40.0-70.0); PLATELET COUNT (AUTO) 86 K/uL (150-450); RED CELL DISTRIBUTION WIDTH 17.3 % (11.5-14.5)
[2021-04-26 07:55] LABS: ALBUMIN 3.5 g/dL (3.4-5.0); BILIRUBIN,TOTAL 0.8 mg/dL (0.1-1.0); C-REACTIVE PROTEIN QUANT 5.84 mg/dL (0.00-0.30); CALCIUM, TOTAL 8.9 mg/dL (8.8-10.5); CREATININE 3.07 mg/dL (0.60-1.30); POTASSIUM 3.4 mmol/L (3.5-5.1); TOTAL PROTEIN, SERUM 9.4 g/dL (6.4-8.2)
[2021-04-26 08:27] LABS: GLUCOMETER DEV NAME(LOC) 5S.1; GLUCOSE,POINT OF CARE 69 MG/DL (70-110)
[2021-04-26] MEDS: SEVELAMER CARBONATE 800 MG TABLET PO SCH ×3 (09:30→18:45)
[2021-04-26] MEDS: CALCIUM ACETATE 667 MG CAPSULE PO SCH ×2 (09:30→18:44)
[2021-04-26] MEDS: METOPROLOL TARTRATE 25 MG TABLET PO SCH ×2 (09:31→21:26)
[2021-04-26] MEDS: ATORVASTATIN CALCIUM 20 MG TABLET PO SCH (09:32)
[2021-04-26] MEDS: OMEPRAZOLE 20 MG CAPSULE PO SCH (09:32)
[2021-04-26] MEDS: LACTULOSE 20 GM/30 ML SOLUTION UDCUP PO SCH ×2 (09:32→21:26)
[2021-04-26] MEDS: ASPIRIN 81 MG CHEWABLE TABLET PO SCH (09:32)
[2021-04-26 09:33] LABS: D-DIMER 1.47 mg/L FEU (0.00-0.50); INR 1.7 (0.9-1.1); PROTHROMBIN TIME 17.2 SEC (9.4-11.6)
[2021-04-26] MEDS ORDERED: WARFARIN SODIUM-INR 2.0-3.0-RX DOSING PER PROTOCOL PO PRN (13:00)
[2021-04-26] MEDS ORDERED: BENZONATATE 100 MG CAPSULE PO PRN (14:30)
[2021-04-26] MEDS: DEXAMETHASONE 4 MG TABLET PO SCH (16:09)
[2021-04-26] MEDS ORDERED: WARFARIN SODIUM 2 MG TABLET PO ONE (17:00)
[2021-04-26] MEDS: CefTAZidime PENTAHYDRATE 1 GM in DEXTROSE 5%-WATER 50 ML IV SCH (18:44)
[2021-04-26 20:36] LABS: GLUCOMETER DEV NAME(LOC) 5S.1; GLUCOSE,POINT OF CARE 106 MG/DL (70-110)
[2021-04-26 20:36] LABS: GLUCOMETER DEV NAME(LOC) 5S.1; GLUCOSE,POINT OF CARE 124 MG/DL (70-110)
[2021-04-26] MEDS: GuaiFENesin SR 600 MG ER TABLET PO SCH (21:26)
[2021-04-26] MEDS: REMDESIVIR 100 MG in SODIUM CHLORIDE 0.9% 250 ML IV SCH (21:27)
[2021-04-26] MEDS: INSULIN LISPRO 100 UNITS/ML SQ PRN (22:54)
[2021-04-27 04:29] VITALS: BP 116/73
[2021-04-27 07:05] VITALS: BP 159/75
[2021-04-27] MEDS: INSULIN LISPRO 100 UNITS/ML SQ PRN ×4 (07:36→20:40)
[2021-04-27 08:02] LABS: INR 1.6 (0.9-1.1); PROTHROMBIN TIME 16.6 SEC (9.4-11.6)
[2021-04-27] MEDS: GuaiFENesin SR 600 MG ER TABLET PO SCH ×2 (08:16→20:23)
[2021-04-27] MEDS: CALCIUM ACETATE 667 MG CAPSULE PO SCH ×2 (08:16→17:10)
[2021-04-27] MEDS: DEXAMETHASONE 4 MG TABLET PO SCH (08:17)
[2021-04-27] MEDS: OMEPRAZOLE 20 MG CAPSULE PO SCH (08:17)
[2021-04-27] MEDS: ATORVASTATIN CALCIUM 20 MG TABLET PO SCH (08:17)
[2021-04-27] MEDS: METOPROLOL TARTRATE 25 MG TABLET PO SCH ×2 (08:17→20:23)
[2021-04-27] MEDS: ASPIRIN 81 MG CHEWABLE TABLET PO SCH (08:18)
[2021-04-27] MEDS: LACTULOSE 20 GM/30 ML SOLUTION UDCUP PO SCH ×2 (08:18→20:37)
[2021-04-27] MEDS: SEVELAMER CARBONATE 800 MG TABLET PO SCH ×3 (08:19→17:11)
[2021-04-27 08:47] LABS: GLUCOMETER DEV NAME(LOC) 5N.1C; GLUCOSE,POINT OF CARE 168 MG/DL (70-110)
[2021-04-27 08:50] LABS: ALBUMIN 2.9 g/dL (3.4-5.0); BILIRUBIN,TOTAL 0.6 mg/dL (0.1-1.0); C-REACTIVE PROTEIN QUANT 5.75 mg/dL (0.00-0.30); CALCIUM, TOTAL 8.9 mg/dL (8.8-10.5); CREATININE 6.37 mg/dL (0.60-1.30); POTASSIUM 5.4 mmol/L (3.5-5.1); TOTAL PROTEIN, SERUM 8.1 g/dL (6.4-8.2); VANCOMYCIN,RANDOM 16.2 mcg/mL (25.0-50.0)
[2021-04-27] MEDS: HEPARIN SODIUM 25000 UNITS/D5W 250 ML IV PRN ×2 (09:46→19:22)
[2021-04-27] MEDS: EPOETIN ALFA 10,000 UNITS/ML VIAL SQ SCH (09:50)
[2021-04-27] MEDS: HEPARIN SODIUM,PORCINE 5,000 UNITS/ML VIAL IVP PRN (09:54)
[2021-04-27] MEDS ORDERED: SODIUM ZIRCONIUM CYCLOSILICATE 5 GM POWDER PACKET PO ONE (10:15)
[2021-04-27 11:11] VITALS: BP 135/75
[2021-04-27 11:51] LABS: GLUCOMETER DEV NAME(LOC) 5S.2B; GLUCOSE,POINT OF CARE 279 MG/DL (70-110)
[2021-04-27 12:16] LABS: GLUCOMETER DEV NAME(LOC) 5S.2B; GLUCOSE,POINT OF CARE 231 MG/DL (70-110)
[2021-04-27] MEDS ORDERED: VANCOMYCIN HCL 1 GM/D5% WATER 200 ML IV ONE (13:00)
[2021-04-27 15:05] VITALS: BP 127/21
[2021-04-27] MEDS ORDERED: WARFARIN SODIUM 2.5 MG TABLET PO ONE (17:00)
[2021-04-27] MEDS: CefTAZidime PENTAHYDRATE 1 GM in DEXTROSE 5%-WATER 50 ML IV SCH (17:11)
[2021-04-27 17:47] LABS: GLUCOMETER DEV NAME(LOC) 5S.2B; GLUCOSE,POINT OF CARE 244 MG/DL (70-110)
[2021-04-27 19:37] VITALS: BP 125/51
[2021-04-27] MEDS: REMDESIVIR 100 MG in SODIUM CHLORIDE 0.9% 250 ML IV SCH (20:23)
[2021-04-27 22:31] LABS: GLUCOMETER DEV NAME(LOC) 5N.3; GLUCOSE,POINT OF CARE 218 MG/DL (70-110)
[2021-04-27 23:58] VITALS: BP 160/100
[2021-04-28] VITALS (21 sets, daily range): BP systolic 120–196; BP diastolic 53–89
[2021-04-28] MEDS: HEPARIN SODIUM,PORCINE 5,000 UNITS/ML VIAL IVP PRN (02:27)
[2021-04-28] MEDS: INSULIN LISPRO 100 UNITS/ML SQ PRN ×3 (05:57→17:33)
[2021-04-28 06:52] LABS: BASOPHILS % (AUTO) 1.4 % (0.0-2.0); EOSINOPHILS % (AUTO) 0 % (1.0-6.0); LYMPHOCYTES # (AUTO) 0.3 K/uL (1.0-4.8); LYMPHOCYTES % (AUTO) 17.6 % (22.0-44.0); MEAN CORPUSCULAR HEMOGLOBIN 25.9 pg (26.0-34.0); MEAN CORPUSCULAR HGB CONC 32.1 G/dL (31.0-37.0); MEAN CORPUSCULAR VOLUME 81 fL (80-100); MONOCYTES # (AUTO) 0.3 K/uL (0.1-1.0); MONOCYTES % (AUTO) 18.4 % (2.0-9.0); NEUTROPHILS % (AUTO) 62.6 % (40.0-70.0); PLATELET COUNT (AUTO) 73 K/uL (150-450); RED BLOOD CELL COUNT(AUTO) 3.48 MIL/uL (4.00-5.20); RED CELL DISTRIBUTION WIDTH 17.2 % (11.5-14.5)
[2021-04-28] MEDS: CALCIUM ACETATE 667 MG CAPSULE PO SCH ×2 (08:07→17:31)
[2021-04-28] MEDS: GuaiFENesin SR 600 MG ER TABLET PO SCH ×2 (08:07→20:05)
[2021-04-28] MEDS: ASPIRIN 81 MG CHEWABLE TABLET PO SCH (08:07)
[2021-04-28] MEDS: SEVELAMER CARBONATE 800 MG TABLET PO SCH ×3 (08:07→17:31)
[2021-04-28] MEDS: ATORVASTATIN CALCIUM 20 MG TABLET PO SCH (08:07)
[2021-04-28] MEDS: METOPROLOL TARTRATE 25 MG TABLET PO SCH ×2 (08:08→20:15)
[2021-04-28] MEDS: DEXAMETHASONE 4 MG TABLET PO SCH (08:08)
[2021-04-28] MEDS: OMEPRAZOLE 20 MG CAPSULE PO SCH (08:08)
[2021-04-28] MEDS: LACTULOSE 20 GM/30 ML SOLUTION UDCUP PO SCH ×2 (08:09→20:05)
[2021-04-28 10:47] LABS: GLUCOMETER DEV NAME(LOC) 5S.1; GLUCOSE,POINT OF CARE 183 MG/DL (70-110)
[2021-04-28 13:03] LABS: D-DIMER 0.62 mg/L FEU (0.00-0.50); INR 2.4 (0.9-1.1); PROTHROMBIN TIME 23.9 SEC (9.4-11.6)
[2021-04-28 13:37] LABS: ALBUMIN 2.9 g/dL (3.4-5.0); BILIRUBIN,TOTAL 0.7 mg/dL (0.1-1.0); C-REACTIVE PROTEIN QUANT 4.39 mg/dL (0.00-0.30); CALCIUM, TOTAL 8.7 mg/dL (8.8-10.5); CREATININE 8.64 mg/dL (0.60-1.30); POTASSIUM 5.1 mmol/L (3.5-5.1)
[2021-04-28] MEDS ORDERED: SODIUM CHLORIDE 0.9% 1,000 ML ONE (16:40)
[2021-04-28 17:51] LABS: GLUCOMETER DEV NAME(LOC) 5N.3; GLUCOSE,POINT OF CARE 227 MG/DL (70-110)
[2021-04-28 17:52] LABS: GLUCOMETER DEV NAME(LOC) 5N.3; GLUCOSE,POINT OF CARE 152 MG/DL (70-110)
[2021-04-28] MEDS: REMDESIVIR 100 MG in SODIUM CHLORIDE 0.9% 250 ML IV SCH (20:04)
[2021-04-28] MEDS: APIXABAN 2.5 MG TABLET PO SCH (20:05)
[2021-04-28] MEDS: CefTAZidime PENTAHYDRATE 1 GM in DEXTROSE 5%-WATER 50 ML IV SCH (21:23)
[2021-04-28 21:36] LABS: GLUCOMETER DEV NAME(LOC) 5N.3; GLUCOSE,POINT OF CARE 117 MG/DL (70-110)
[2021-04-29 04:34] VITALS: BP 141/64
[2021-04-29] MEDS: INSULIN LISPRO 100 UNITS/ML SQ PRN ×4 (05:40→21:43)
[2021-04-29 06:48] LABS: BASOPHILS % (AUTO) 0.1 % (0.0-2.0); EOSINOPHILS % (AUTO) 0.1 % (1.0-6.0); HEMATOCRIT 27.5 % (36-46); LYMPHOCYTES # (AUTO) 0.3 K/uL (1.0-4.8); LYMPHOCYTES % (AUTO) 12.9 % (22.0-44.0); MEAN CORPUSCULAR HEMOGLOBIN 25.5 pg (26.0-34.0); MEAN CORPUSCULAR HGB CONC 32.5 G/dL (31.0-37.0); MEAN CORPUSCULAR VOLUME 78 fL (80-100); MONOCYTES # (AUTO) 0.4 K/uL (0.1-1.0); MONOCYTES % (AUTO) 19.7 % (2.0-9.0); NEUTROPHILS # (AUTO) 1.4 K/uL (1.8-7.7); NEUTROPHILS % (AUTO) 67.2 % (40.0-70.0); PLATELET COUNT (AUTO) 84 K/uL (150-450); RED BLOOD CELL COUNT(AUTO) 3.51 MIL/uL (4.00-5.20)
[2021-04-29 07:06] LABS: INR 2.9 (0.9-1.1); PROTHROMBIN TIME 28.1 SEC (9.4-11.6)
[2021-04-29 07:09] LABS: ALBUMIN 2.8 g/dL (3.4-5.0); BILIRUBIN,TOTAL 0.7 mg/dL (0.1-1.0); CALCIUM, TOTAL 8.4 mg/dL (8.8-10.5); CREATININE 5.55 mg/dL (0.60-1.30); POTASSIUM 4.4 mmol/L (3.5-5.1); TOTAL PROTEIN, SERUM 7.8 g/dL (6.4-8.2)
[2021-04-29 07:58] VITALS: BP 175/60
[2021-04-29] MEDS: DEXAMETHASONE 4 MG TABLET PO SCH (08:51)
[2021-04-29] MEDS: APIXABAN 2.5 MG TABLET PO SCH (08:51)
[2021-04-29] MEDS: METOPROLOL TARTRATE 25 MG TABLET PO SCH (08:51)
[2021-04-29] MEDS: ASPIRIN 81 MG CHEWABLE TABLET PO SCH (08:51)
[2021-04-29] MEDS: CALCIUM ACETATE 667 MG CAPSULE PO SCH ×2 (08:52→18:05)
[2021-04-29] MEDS: LACTULOSE 20 GM/30 ML SOLUTION UDCUP PO SCH (08:52)
[2021-04-29] MEDS: ATORVASTATIN CALCIUM 20 MG TABLET PO SCH (08:52)
[2021-04-29] MEDS: OMEPRAZOLE 20 MG CAPSULE PO SCH (08:52)
[2021-04-29] MEDS: EPOETIN ALFA 10,000 UNITS/ML VIAL SQ SCH (08:52)
[2021-04-29] MEDS: SEVELAMER CARBONATE 800 MG TABLET PO SCH ×3 (08:52→18:05)
[2021-04-29] MEDS: GuaiFENesin SR 600 MG ER TABLET PO SCH (08:52)
[2021-04-29 11:37] VITALS: BP 158/57
[2021-04-29 12:16] LABS: GLUCOMETER DEV NAME(LOC) 5S.1; GLUCOSE,POINT OF CARE 181 MG/DL (70-110)
[2021-04-29 15:16] VITALS: BP 110/53
[2021-04-29] MEDS: CefTAZidime PENTAHYDRATE 1 GM in DEXTROSE 5%-WATER 50 ML IV SCH (18:00)
[2021-04-29 19:41] VITALS: BP 158/44
[2021-04-29] MEDS: REMDESIVIR 100 MG in SODIUM CHLORIDE 0.9% 250 ML IV SCH (23:45)
[2021-04-30] VITALS (14 sets, daily range): BP systolic 122–175; BP diastolic 47–71
[2021-04-30] MEDS: INSULIN LISPRO 100 UNITS/ML SQ PRN ×2 (06:32→11:43)
[2021-04-30] MEDS: GuaiFENesin SR 600 MG ER TABLET PO SCH (09:00)
[2021-04-30] MEDS: METOPROLOL TARTRATE 25 MG TABLET PO SCH (09:00)
[2021-04-30] MEDS: LACTULOSE 20 GM/30 ML SOLUTION UDCUP PO SCH (09:00)
[2021-04-30] MEDS: APIXABAN 2.5 MG TABLET PO SCH (09:00)
[2021-04-30] MEDS: CALCIUM ACETATE 667 MG CAPSULE PO SCH (09:19)
[2021-04-30] MEDS: ASPIRIN 81 MG CHEWABLE TABLET PO SCH (09:19)
[2021-04-30] MEDS: OMEPRAZOLE 20 MG CAPSULE PO SCH (09:20)
[2021-04-30] MEDS: SEVELAMER CARBONATE 800 MG TABLET PO SCH ×2 (09:20→11:43)
[2021-04-30] MEDS: DEXAMETHASONE 4 MG TABLET PO SCH (09:20)
[2021-04-30] MEDS: ATORVASTATIN CALCIUM 20 MG TABLET PO SCH (09:20)
[2021-04-30] MEDS ORDERED: ASPI81 PO (12:48)
[2021-04-30] MEDS ORDERED: METO25 PO (12:48)
[2021-04-30] MEDS ORDERED: DEXA1 PO (12:48)
[2021-04-30] MEDS ORDERED: ATOR20TA65 PO (12:48)
[2021-05-01 18:07] LABS: GLUCOMETER DEV NAME(LOC) 5S.1; GLUCOSE,POINT OF CARE 253 MG/DL (70-110)
[2021-05-01 18:07] LABS: GLUCOMETER DEV NAME(LOC) 5S.1; GLUCOSE,POINT OF CARE 168 MG/DL (70-110)
[2021-05-01 18:07] LABS: GLUCOMETER DEV NAME(LOC) 5S.1; GLUCOSE,POINT OF CARE 151 MG/DL (70-110)
[2021-05-02 00:11] LABS: GLUCOMETER DEV NAME(LOC) 5N.3; GLUCOSE,POINT OF CARE 166 MG/DL (70-110)
[2021-05-02 00:12] LABS: GLUCOMETER DEV NAME(LOC) 5N.3; GLUCOSE,POINT OF CARE 241 MG/DL (70-110)
== END 2021-04-30 15:20 | disposition home or self-care (01) | DRG 871 ==
LOC: EMS 20:33 → 5N 04-25 20:13
PROVIDERS: ADMIT Internal Medicine; ATTEND Internal Medicine
PROC: XW033E5 Introduction of Remdesivir Anti-infective into Peripheral Vein, Percutaneous Approach, New Technology Group 5 (ICD-10-PCS; principal; 2021-04-25)
DX: A41.9 Sepsis, unspecified organism (principal); U07.1 COVID-19; J12.82 Pneumonia due to coronavirus disease 2019; N18.6 End stage renal disease; J96.91 Respiratory failure, unspecified with hypoxia; J15.9 Unspecified bacterial pneumonia; I13.2 Hypertensive heart and chronic kidney disease with heart failure and with stage 5 chronic kidney disease, or end stage renal disease; I42.9 Cardiomyopathy, unspecified; D68.59 Other primary thrombophilia; D72.810 Lymphocytopenia; E11.22 Type 2 diabetes mellitus with diabetic chronic kidney disease; E78.5 Hyperlipidemia, unspecified; E87.6 Hypokalemia; I25.10 Atherosclerotic heart disease of native coronary artery without angina pectoris; I25.2 Old myocardial infarction; I50.9 Heart failure, unspecified; Z78.9 Other specified health status; Y95 Nosocomial condition; E87.5 Hyperkalemia; Z79.01 Long term (current) use of anticoagulants; Z79.84 Long term (current) use of oral hypoglycemic drugs; Z83.3 Family history of diabetes mellitus; Z86.79 Personal history of other diseases of the circulatory system; Z95.1 Presence of aortocoronary bypass graft; Z95.3 Presence of xenogenic heart valve; Z95.810 Presence of automatic (implantable) cardiac defibrillator; Z99.2 Dependence on renal dialysis; Z79.899 Other long term (current) drug therapy
CPT/HCPCS: 71046; 80053; 80170; 80202; 82550; 82728; 82962; 83605; 83615; 83880; 84145; 84484; 85025; 85379; 85384; 85610; 85730; 86140; 87040; 87081; 87340; 87804; 90935; 93005; 93970; 99285; J0456; J0696; J0713; J0885; J1644; J3370; J7030; J7050; J7060; J8540; Q9967; 36415-L1; 36415-TC

== ENCOUNTER 2023-04-04 20:45 | Inpatient (IN) | payer MEDICARE, MEDICAID ==
[~2023-04-04] VITALS: Ht 152.4 cm; Wt 60.4 kg
[~2023-04-04 20:45] MED LIST changes: +ASPI81 PO; +ATOR20TA65 PO; -CEFX2I IV; +FERR325T27 PO; -GENT70PI2 IV; +LACT10SO10 PO; -LACT30L PO; +METO25 PO; -OMEP20 PO; +PANT-31 PO; -SIMV-260 PO; -WARF1TAB9 PO
[2023-04-04 21:04] LABS: COVID AG,FIA SOURCE NASAL SWAB
[2023-04-04 21:31] LABS: INFLUENZA TYPE A NEGATIVE FOR TYPE A (NEGATIVE); INFLUENZA TYPE B NEGATIVE FOR TYPE B (NEGATIVE); SARS-COV2 (COVID) ANTIGEN,FIA Negative (Negative)
[2023-04-04 22:12] LABS: BASOPHILS % (AUTO) 0.8 % (0.0-2.0); EOSINOPHILS % (AUTO) 2.9 % (1.0-6.0); HEMATOCRIT 31.2 % (36-46); HEMOGLOBIN 10.1 g/dL (12.0-16.0); LYMPHOCYTES # (AUTO) 0.8 K/uL (1.0-4.8); LYMPHOCYTES % (AUTO) 17.7 % (22.0-44.0); MEAN CORPUSCULAR HEMOGLOBIN 25.4 pg (26.0-34.0); MEAN CORPUSCULAR HGB CONC 32.4 G/dL (31.0-37.0); MEAN CORPUSCULAR VOLUME 78 fL (80-100); MONOCYTES # (AUTO) 0.7 K/uL (0.1-1.0); MONOCYTES % (AUTO) 14.9 % (2.0-9.0); NEUTROPHILS # (AUTO) 2.9 K/uL (1.8-7.7); NEUTROPHILS % (AUTO) 63.7 % (40.0-70.0); PLATELET COUNT (AUTO) 47 K/uL (150-450); RED BLOOD CELL COUNT(AUTO) 3.98 MIL/uL (4.00-5.20); RED CELL DISTRIBUTION WIDTH 18.3 % (11.5-14.5); WHITE BLOOD COUNT (AUTO) 4.6 K/uL (4.5-11.0)
[2023-04-04 22:22] LABS: ANION GAP 14 mmol/L (8-16); CALCIUM, TOTAL 8.9 mg/dL (8.8-10.5); CARBON DIOXIDE 28 mmol/L (22-29); CHLORIDE 96 mmol/L (98-107); CREATININE 8.23 mg/dL (0.60-1.30); GLOMERULAR FILTR. RATE CALC 5 mL/min (>60); GLUCOSE,RANDOM 183 mg/dL (70-110); POTASSIUM 4.6 mmol/L (3.5-5.1); SODIUM SERUM 138 mmol/L (136-145); UREA NITROGEN, BLOOD 59 mg/dL (7-18)
[2023-04-04 22:27] LABS: ALANINE AMINOTRANSFERASE 22 U/L (12-78); ALBUMIN 3.9 g/dL (3.4-5.0); ALKALINE PHOSPHATASE 145 U/L (46-116); ASPARTATE AMINOTRANSFERASE 27 U/L (15-37); BILIRUBIN,TOTAL 1.2 mg/dL (0.1-1.0); LIPASE 125 U/L (16-77); TOTAL PROTEIN, SERUM 8.3 g/dL (6.4-8.2)
[2023-04-04 22:29] LABS: LACTIC ACID 0.6 mmol/L (0.4-2.0); TROPONIN I-HIGH SENSITIVITY 33 ng/L (<51)
[2023-04-04] MEDS ORDERED: IPRATROPIUM BROMIDE 0.5 MG/2.5 ML NEB SOLUTION NEB ONE (22:30)
[2023-04-04] MEDS ORDERED: ALBUTEROL SULFATE 2.5 MG/0.5 ML NEB SOLUTION NEB ONE (22:30)
[2023-04-04 22:36] LABS: B-TYPE NATRIURETIC PEPTIDE 158 pg/mL (0-100)
[2023-04-04 22:39] VITALS: PULSE 69; RESP 22; O2SAT 96
[2023-04-04 22:42] VITALS: PULSE 69; RESP 16; O2SAT 96
[2023-04-05] VITALS (10 sets, daily range): BP systolic 109–161; BP diastolic 51–68; PULSE 65–78; RESP 17–22; TEMP 98.1–98.8; O2SAT 96–98
[2023-04-05] MEDS ORDERED: PIPERACILLIN/TAZO 3.375 GM/D5W 50 ML IV ONE (00:30)
[2023-04-05] MEDS ORDERED: VANCOMYCIN HCL 1.25 GM in DEXTROSE 5%-WATER 250 ML IV ONE (00:30)
[2023-04-05] MEDS: AZITHROMYCIN 500 MG/NS 250 ML IV ONE ×2 (00:39→02:13)
[2023-04-05] MEDS ORDERED: 0.9% SODIUM CHLORIDE 10 ML SYRINGE IVP PRN (01:15)
[2023-04-05] MEDS ORDERED: ONDANSETRON HCL 4 MG/2 ML VIAL IVP PRN ×2 (01:15→13:15)
[2023-04-05] MEDS ORDERED: ACETAMINOPHEN 325 MG TABLET PO PRN ×2 (01:15→13:15)
[2023-04-05] MEDS ORDERED: BENZONATATE 100 MG CAPSULE PO ONE (03:15)
[2023-04-05] MEDS ORDERED: ALBUTEROL SULFATE 2.5 MG/0.5 ML NEB SOLUTION NEB ONE (03:40)
[2023-04-05 10:47] LABS: BASOPHILS % (AUTO) 0.6 % (0.0-2.0); HEMATOCRIT 29.7 % (36-46); HEMOGLOBIN 9.6 g/dL (12.0-16.0); LYMPHOCYTES # (AUTO) 0.7 K/uL (1.0-4.8); LYMPHOCYTES % (AUTO) 12.1 % (22.0-44.0); MEAN CORPUSCULAR HEMOGLOBIN 25.3 pg (26.0-34.0); MEAN CORPUSCULAR HGB CONC 32.4 G/dL (31.0-37.0); MEAN CORPUSCULAR VOLUME 78 fL (80-100); MONOCYTES # (AUTO) 0.7 K/uL (0.1-1.0); MONOCYTES % (AUTO) 12.9 % (2.0-9.0); NEUTROPHILS # (AUTO) 4.3 K/uL (1.8-7.7); NEUTROPHILS % (AUTO) 73.4 % (40.0-70.0); PLATELET COUNT (AUTO) 43 K/uL (150-450); RED BLOOD CELL COUNT(AUTO) 3.79 MIL/uL (4.00-5.20); RED CELL DISTRIBUTION WIDTH 18.3 % (11.5-14.5); WHITE BLOOD COUNT (AUTO) 5.8 K/uL (4.5-11.0)
[2023-04-05 11:01] LABS: CALCIUM, TOTAL 8.7 mg/dL (8.8-10.5); CREATININE 9.12 mg/dL (0.60-1.30)
[2023-04-05] MEDS ORDERED: MAGNESIUM HYDROXIDE SUSPENSION 30 ML UDCUP PO PRN (13:15)
[2023-04-05] MEDS ORDERED: MORPHINE SULFATE 2 MG/ML SYRINGE IVP PRN (13:15)
[2023-04-05] MEDS ORDERED: DEXTROSE 50%-WATER 25 GM/50 ML SYRINGE IVP PRN (13:15)
[2023-04-05] MEDS ORDERED: HYDROCODONE/ACETAMINOPHEN 5-325 MG TABLET PO PRN (13:15)
[2023-04-05] MEDS ORDERED: *CLINICAL-LEVOFLOXACIN IVPB DOSING CLINICAL ONE (13:15)
[2023-04-05] MEDS ORDERED: BISACODYL 10 MG RECTAL RECTAL SUPPOSITORY PR PRN (13:15)
[2023-04-05] MEDS ORDERED: ASPI-1450 PO (13:16)
[2023-04-05] MEDS ORDERED: SIMV-43 PO (13:16)
[2023-04-05] MEDS ORDERED: WARF1TAB85 PO (13:16)
[2023-04-05] MEDS ORDERED: LEVOFLOXACIN 750 MG/D5% WATER 150 ML IV ONE (16:00)
[2023-04-05] MEDS: HEPARIN SODIUM,PORCINE 5,000 UNITS/ML VIAL SQ SCH ×2 (16:00→23:23)
[2023-04-05] MEDS ORDERED: SODIUM CHLORIDE 0.9% 500 ML IV ONE (16:20)
[2023-04-05] MEDS: OXYMETAZOLINE HCL 0.05% 15 ML NASAL SPRAY NASAL SCH ×2 (17:30→20:35)
[2023-04-05] MEDS: GuaiFENesin/D-METHORPHAN [SUGAR-FREE] 200-20MG/10 ML SYRUP UDCUP PO PRN (17:32)
[2023-04-05] MEDS: INSULIN LISPRO 100 UNITS/ML SQ PRN ×2 (17:42→20:44)
[2023-04-05] MEDS: FERROUS SULFATE 325 MG EC TABLET PO SCH (20:33)
[2023-04-05] MEDS: SEVELAMER CARBONATE 800 MG TABLET PO SCH (20:34)
[2023-04-05] MEDS: CALCIUM ACETATE 667 MG CAPSULE PO SCH (20:34)
[2023-04-05] MEDS: DOCUSATE SODIUM 100 MG CAPSULE PO SCH (20:35)
[2023-04-05] MEDS: METOPROLOL TARTRATE 25 MG TABLET PO SCH (20:36)
[2023-04-05] MEDS: ZOLPIDEM TARTRATE 5 MG TABLET PO PRN (22:53)
[2023-04-06] VITALS (19 sets, daily range): BP systolic 70–179; BP diastolic 26–88; PULSE 66–125; RESP 18–24; TEMP 97.3–98.7
[2023-04-06 00:21] LABS: GLUCOMETER DEV NAME(LOC) 5S.2C; GLUCOSE,POINT OF CARE 226 MG/DL (70-110)
[2023-04-06 00:21] LABS: GLUCOMETER DEV NAME(LOC) 5N.1C; GLUCOSE,POINT OF CARE 168 MG/DL (70-110)
[2023-04-06 07:01] LABS: BASOPHILS % (AUTO) 0.4 % (0.0-2.0); EOSINOPHILS % (AUTO) 1.4 % (1.0-6.0); HEMOGLOBIN 9.4 g/dL (12.0-16.0); LYMPHOCYTES # (AUTO) 0.5 K/uL (1.0-4.8); LYMPHOCYTES % (AUTO) 8.9 % (22.0-44.0); MEAN CORPUSCULAR HEMOGLOBIN 25.3 pg (26.0-34.0); MEAN CORPUSCULAR HGB CONC 32.5 G/dL (31.0-37.0); MEAN CORPUSCULAR VOLUME 78 fL (80-100); MONOCYTES # (AUTO) 0.7 K/uL (0.1-1.0); MONOCYTES % (AUTO) 11.4 % (2.0-9.0); NEUTROPHILS # (AUTO) 4.5 K/uL (1.8-7.7); NEUTROPHILS % (AUTO) 77.9 % (40.0-70.0); PLATELET COUNT (AUTO) 45 K/uL (150-450); RED BLOOD CELL COUNT(AUTO) 3.73 MIL/uL (4.00-5.20); RED CELL DISTRIBUTION WIDTH 17.8 % (11.5-14.5); WHITE BLOOD COUNT (AUTO) 5.7 K/uL (4.5-11.0)
[2023-04-06 07:18] LABS: ALBUMIN 3.3 g/dL (3.4-5.0); BILIRUBIN,TOTAL 1.4 mg/dL (0.1-1.0); CALCIUM, TOTAL 8.4 mg/dL (8.8-10.5); CREATININE 10.11 mg/dL (0.60-1.30); PHOSPHORUS 5.7 mg/dL (2.5-4.9); TOTAL PROTEIN, SERUM 7.5 g/dL (6.4-8.2)
[2023-04-06] MEDS: HEPARIN SODIUM,PORCINE 5,000 UNITS/ML VIAL SQ SCH ×2 (08:00→16:00)
[2023-04-06 08:07] LABS: PLATELET MORPHOLOGY COMMENT GIANT PLTS PRESENT; RBC MORPHOLOGY COMMENT ABNORMAL RBC MORPH
[2023-04-06 08:36] LABS: GLUCOMETER DEV NAME(LOC) 5S.2C; GLUCOSE,POINT OF CARE 75 MG/DL (70-110)
[2023-04-06] MEDS: ASPIRIN 81 MG CHEWABLE TABLET PO SCH (09:00)
[2023-04-06] MEDS: METOPROLOL TARTRATE 25 MG TABLET PO SCH ×2 (09:00→20:18)
[2023-04-06] MEDS: DOCUSATE SODIUM 100 MG CAPSULE PO SCH ×2 (09:00→20:18)
[2023-04-06] MEDS: SEVELAMER CARBONATE 800 MG TABLET PO SCH ×3 (12:00→17:25)
[2023-04-06 12:16] LABS: GLUCOMETER DEV NAME(LOC) 5S.2C; GLUCOSE,POINT OF CARE 103 MG/DL (70-110)
[2023-04-06] MEDS: GuaiFENesin/D-METHORPHAN [SUGAR-FREE] 200-20MG/10 ML SYRUP UDCUP PO SCH ×2 (13:50→17:25)
[2023-04-06] MEDS: FOLIC ACID/VIT B COMPLEX AND C TABLET PO SCH (13:50)
[2023-04-06] MEDS: OXYMETAZOLINE HCL 0.05% 15 ML NASAL SPRAY NASAL SCH ×3 (13:52→20:18)
[2023-04-06] MEDS: FERROUS SULFATE 325 MG EC TABLET PO SCH ×2 (13:56→17:25)
[2023-04-06] MEDS: PANTOPRAZOLE SODIUM 40 MG DR TABLET PO SCH (13:57)
[2023-04-06] MEDS: ATORVASTATIN CALCIUM 20 MG TABLET PO SCH (13:57)
[2023-04-06] MEDS: CALCIUM ACETATE 667 MG CAPSULE PO SCH ×2 (13:57→17:25)
[2023-04-06] MEDS: INSULIN LISPRO 100 UNITS/ML SQ PRN ×2 (17:42→21:15)
[2023-04-06 17:56] LABS: GLUCOMETER DEV NAME(LOC) 5S.2C; GLUCOSE,POINT OF CARE 190 MG/DL (70-110)
[2023-04-06] MEDS: GuaiFENesin/D-METHORPHAN [SUGAR-FREE] 200-20MG/10 ML SYRUP UDCUP PO PRN (21:19)
[2023-04-06] MEDS: ZOLPIDEM TARTRATE 5 MG TABLET PO PRN (21:38)
[2023-04-07] VITALS (18 sets, daily range): BP systolic 113–153; BP diastolic 35–66; PULSE 70–73; RESP 17–20; TEMP 97.5–98.4
[2023-04-07 06:30] LABS: BASOPHILS % (AUTO) 0.5 % (0.0-2.0); EOSINOPHILS % (AUTO) 1.8 % (1.0-6.0); HEMATOCRIT 30.2 % (36-46); HEMOGLOBIN 9.7 g/dL (12.0-16.0); LYMPHOCYTES # (AUTO) 0.8 K/uL (1.0-4.8); LYMPHOCYTES % (AUTO) 14.1 % (22.0-44.0); MEAN CORPUSCULAR HEMOGLOBIN 25.3 pg (26.0-34.0); MEAN CORPUSCULAR HGB CONC 32.2 G/dL (31.0-37.0); MEAN CORPUSCULAR VOLUME 79 fL (80-100); MONOCYTES # (AUTO) 0.8 K/uL (0.1-1.0); MONOCYTES % (AUTO) 14.7 % (2.0-9.0); NEUTROPHILS # (AUTO) 3.7 K/uL (1.8-7.7); NEUTROPHILS % (AUTO) 68.9 % (40.0-70.0); PLATELET COUNT (AUTO) 68 K/uL (150-450); RED BLOOD CELL COUNT(AUTO) 3.84 MIL/uL (4.00-5.20); RED CELL DISTRIBUTION WIDTH 18.4 % (11.5-14.5); WHITE BLOOD COUNT (AUTO) 5.4 K/uL (4.5-11.0)
[2023-04-07 06:47] LABS: CALCIUM, TOTAL 8.5 mg/dL (8.8-10.5); CREATININE 6.32 mg/dL (0.60-1.30); PHOSPHORUS 5.6 mg/dL (2.5-4.9); POTASSIUM 4.6 mmol/L (3.5-5.1)
[2023-04-07] MEDS: HEPARIN SODIUM,PORCINE 5,000 UNITS/ML VIAL SQ SCH ×3 (08:00→16:00)
[2023-04-07] MEDS: ASPIRIN 81 MG CHEWABLE TABLET PO SCH (09:00)
[2023-04-07] MEDS ORDERED: EPOETIN ALFA 10,000 UNITS/ML 2 ML VIAL SQ SCH (09:00)
[2023-04-07] MEDS: FOLIC ACID/VIT B COMPLEX AND C TABLET PO SCH (10:00)
[2023-04-07] MEDS: CALCIUM ACETATE 667 MG CAPSULE PO SCH ×2 (10:00→18:31)
[2023-04-07] MEDS: ATORVASTATIN CALCIUM 20 MG TABLET PO SCH (10:00)
[2023-04-07] MEDS: FERROUS SULFATE 325 MG EC TABLET PO SCH ×2 (10:00→18:31)
[2023-04-07] MEDS: PANTOPRAZOLE SODIUM 40 MG DR TABLET PO SCH (10:00)
[2023-04-07] MEDS: SEVELAMER CARBONATE 800 MG TABLET PO SCH ×3 (10:00→18:31)
[2023-04-07] MEDS: DOCUSATE SODIUM 100 MG CAPSULE PO SCH ×2 (10:01→21:00)
[2023-04-07] MEDS: METOPROLOL TARTRATE 25 MG TABLET PO SCH ×2 (10:01→21:59)
[2023-04-07] MEDS: OXYMETAZOLINE HCL 0.05% 15 ML NASAL SPRAY NASAL SCH ×3 (10:16→23:48)
[2023-04-07] MEDS: GuaiFENesin/D-METHORPHAN [SUGAR-FREE] 200-20MG/10 ML SYRUP UDCUP PO SCH ×4 (10:16→23:46)
[2023-04-07] MEDS ORDERED: OXYM15SP57 NASAL (11:34)
[2023-04-07] MEDS ORDERED: CALC0.2521 PO (11:34)
[2023-04-07] MEDS ORDERED: DEXT15SY3 PO (11:36)
[2023-04-07] MEDS ORDERED: LEVO-72 PO (11:36)
[2023-04-07 12:01] LABS: GLUCOMETER DEV NAME(LOC) 5S.2C; GLUCOSE,POINT OF CARE 98 MG/DL (70-110)
[2023-04-07 12:06] LABS: GLUCOMETER DEV NAME(LOC) 5N.1C; GLUCOSE,POINT OF CARE 242 MG/DL (70-110)
[2023-04-07 12:06] LABS: GLUCOMETER DEV NAME(LOC) 5N.1C; GLUCOSE,POINT OF CARE 295 MG/DL (70-110)
[2023-04-07] MEDS: INSULIN LISPRO 100 UNITS/ML SQ PRN ×2 (12:22→22:33)
[2023-04-07] MEDS ORDERED: LEVOFLOXACIN 500 MG/D5% WATER 100 ML IV SCH (18:00)
[2023-04-07] MEDS: GuaiFENesin/D-METHORPHAN [SUGAR-FREE] 200-20MG/10 ML SYRUP UDCUP PO PRN ×2 (19:02→21:59)
[2023-04-07 19:06] LABS: GLUCOMETER DEV NAME(LOC) 5S.2C; GLUCOSE,POINT OF CARE 117 MG/DL (70-110)
[2023-04-07] MEDS: ZOLPIDEM TARTRATE 5 MG TABLET PO PRN (22:12)
[2023-04-08] VITALS: BP 115/40; PULSE 70; RESP 18; TEMP 97.7
[2023-04-08] MEDS: GuaiFENesin/D-METHORPHAN [SUGAR-FREE] 200-20MG/10 ML SYRUP UDCUP PO PRN ×2 (03:20→11:43)
[2023-04-08 04:00] VITALS: BP 139/55; PULSE 70; RESP 18; TEMP 97.8
[2023-04-08] MEDS: INSULIN LISPRO 100 UNITS/ML SQ PRN ×2 (05:50→11:52)
[2023-04-08 06:40] LABS: BASOPHILS % (AUTO) 0.7 % (0.0-2.0); EOSINOPHILS % (AUTO) 3.1 % (1.0-6.0); HEMATOCRIT 32.3 % (36-46); HEMOGLOBIN 10.5 g/dL (12.0-16.0); LYMPHOCYTES % (AUTO) 19.4 % (22.0-44.0); MEAN CORPUSCULAR HEMOGLOBIN 25.4 pg (26.0-34.0); MEAN CORPUSCULAR HGB CONC 32.4 G/dL (31.0-37.0); MEAN CORPUSCULAR VOLUME 78 fL (80-100); MONOCYTES # (AUTO) 0.9 K/uL (0.1-1.0); MONOCYTES % (AUTO) 17.3 % (2.0-9.0); NEUTROPHILS % (AUTO) 59.5 % (40.0-70.0); PLATELET COUNT (AUTO) 96 K/uL (150-450); RED BLOOD CELL COUNT(AUTO) 4.13 MIL/uL (4.00-5.20); RED CELL DISTRIBUTION WIDTH 18.5 % (11.5-14.5)
[2023-04-08 07:01] LABS: INR 2.1 (0.9-1.1); PROTHROMBIN TIME 20.9 SEC (9.4-11.6)
[2023-04-08 07:24] LABS: CALCIUM, TOTAL 8.9 mg/dL (8.8-10.5); CREATININE 4.25 mg/dL (0.60-1.30); POTASSIUM 4.2 mmol/L (3.5-5.1)
[2023-04-08 07:36] VITALS: BP 126/62; PULSE 68; RESP 18; TEMP 98
[2023-04-08] MEDS: HEPARIN SODIUM,PORCINE 5,000 UNITS/ML VIAL SQ SCH ×3 (08:00→15:33)
[2023-04-08 08:17] VITALS: BP 143/58; PULSE 70; RESP 18; TEMP 98.2
[2023-04-08] MEDS: FOLIC ACID/VIT B COMPLEX AND C TABLET PO SCH (08:24)
[2023-04-08] MEDS: ATORVASTATIN CALCIUM 20 MG TABLET PO SCH (08:24)
[2023-04-08] MEDS: GuaiFENesin/D-METHORPHAN [SUGAR-FREE] 200-20MG/10 ML SYRUP UDCUP PO SCH ×2 (08:24→15:32)
[2023-04-08] MEDS: OXYMETAZOLINE HCL 0.05% 15 ML NASAL SPRAY NASAL SCH ×2 (08:24→15:32)
[2023-04-08] MEDS: CALCIUM ACETATE 667 MG CAPSULE PO SCH (08:25)
[2023-04-08] MEDS: SEVELAMER CARBONATE 800 MG TABLET PO SCH ×2 (08:25→11:43)
[2023-04-08] MEDS: METOPROLOL TARTRATE 25 MG TABLET PO SCH (08:25)
[2023-04-08] MEDS: FERROUS SULFATE 325 MG EC TABLET PO SCH (08:26)
[2023-04-08] MEDS: PANTOPRAZOLE SODIUM 40 MG DR TABLET PO SCH (08:26)
[2023-04-08] MEDS ORDERED: CALCITRIOL 0.25 MCG CAPSULE PO SCH (09:00)
[2023-04-08] MEDS: DOCUSATE SODIUM 100 MG CAPSULE PO SCH (09:00)
[2023-04-08] MEDS: ASPIRIN 81 MG CHEWABLE TABLET PO SCH (09:00)
[2023-04-08] MEDS ORDERED: GUAIF10 PO (10:14)
[2023-04-08 12:01] LABS: GLUCOMETER DEV NAME(LOC) 5N.1C; GLUCOSE,POINT OF CARE 189 MG/DL (70-110)
[2023-04-08 12:11] LABS: GLUCOMETER DEV NAME(LOC) 5S.2C; GLUCOSE,POINT OF CARE 252 MG/DL (70-110)
[2023-04-08 12:12] LABS: GLUCOMETER DEV NAME(LOC) 5S.2C; GLUCOSE,POINT OF CARE 162 MG/DL (70-110)
[2023-04-08 14:02] VITALS: BP 117/71; PULSE 70; RESP 18; TEMP 98
[2023-04-08 15:16] VITALS: BP 124/68; PULSE 76; RESP 18; TEMP 98
== END 2023-04-08 17:15 | disposition home or self-care (01) | DRG 139 ==
LOC: EMS 21:12 → ICU 04-05 03:56 → 5S 04-05 11:50
PROVIDERS: ADMIT Hospitalist; ATTEND Hospitalist
PROC: 5A1D70Z Performance of Urinary Filtration, Intermittent, Less than 6 Hours Per Day (ICD-10-PCS; principal; 2023-04-06)
PROC: 5A1D70Z Performance of Urinary Filtration, Intermittent, Less than 6 Hours Per Day (ICD-10-PCS; 2023-04-07)
DX: J18.9 Pneumonia, unspecified organism (principal); J96.91 Respiratory failure, unspecified with hypoxia; K85.90 Acute pancreatitis without necrosis or infection, unspecified; D69.6 Thrombocytopenia, unspecified; I12.0 Hypertensive chronic kidney disease with stage 5 chronic kidney disease or end stage renal disease; D63.1 Anemia in chronic kidney disease; N18.6 End stage renal disease; E87.70 Fluid overload, unspecified; I48.20 Chronic atrial fibrillation, unspecified; J20.9 Acute bronchitis, unspecified; E11.22 Type 2 diabetes mellitus with diabetic chronic kidney disease; E78.5 Hyperlipidemia, unspecified; Z20.822 Contact with and (suspected) exposure to COVID-19; N28.1 Cyst of kidney, acquired; N25.81 Secondary hyperparathyroidism of renal origin; I35.1 Nonrheumatic aortic (valve) insufficiency; R04.0 Epistaxis; Z79.899 Other long term (current) drug therapy; Z95.1 Presence of aortocoronary bypass graft; Z95.810 Presence of automatic (implantable) cardiac defibrillator; Z99.2 Dependence on renal dialysis; Z79.82 Long term (current) use of aspirin; Z79.01 Long term (current) use of anticoagulants; Z86.19 Personal history of other infectious and parasitic diseases
CPT/HCPCS: 71045; 80048; 80053; 82962; 83605; 83690; 83880; 84100; 84484; 85025; 85610; 87040; 87070; 87081; 87205; 87340; 87804; 90935; 93005; 94060; 94640; 99285; J0456; J0885; J1644; J1956; J2405; J2543; J3370; J7040; J7060; 36415-L1; 36415-TC; C9803; J7613

== ENCOUNTER 2025-03-16 18:07 | Emergency (ER) | payer MEDICARE, MEDICAID ==
[~2025-03-16] VITALS: Ht 154.9 cm; Wt 50.0 kg
[~2025-03-16 18:07] MED LIST changes: +ASPI-1450 PO; -ASPI81 PO; -ATOR20TA65 PO; +CALC0.2521 PO; +DEXT15SY3 PO; -GLIM2 PO; +GLIM2TAB35 PO; +GUAI100L96 PO; +LEVO-72 PO; +OXYM15SP63 NASAL; +SIMV-43 PO; +WARF1TAB85 PO
[2025-03-16 19:42] LABS: CALCIUM, TOTAL 8.6 mg/dL (8.8-10.5); CREATININE 2.08 mg/dL (0.60-1.30); GLOMERULAR FILTR. RATE CALC 23.0 mL/min (>60); GLUCOSE,RANDOM 177.0 mg/dL (70-110); SODIUM SERUM 136.0 mmol/L (136-145); UREA NITROGEN, BLOOD 6.0 mg/dL (7-18)
[2025-03-16 19:57] LABS: PLATELET COUNT (AUTO) 131 K/uL (150-450); RED BLOOD CELL COUNT(AUTO) 2.78 MIL/uL (4.00-5.20); RED CELL DISTRIBUTION WIDTH 18.8 % (11.5-14.5); WHITE BLOOD COUNT (AUTO) 10.5 K/uL (4.5-11.0)
[2025-03-16] MEDS: PHYTONADIONE 10 MG/ML VIAL IM ONE (22:45)
[2025-03-17] VITALS (12 sets, daily range): BP systolic 66–106; BP diastolic 25–54; PULSE 70–71; RESP 16–22; TEMP 98–98.7; O2SAT 97
[2025-03-17 00:43] LABS: PLATELET COUNT (AUTO) 120 K/uL (150-450); RED BLOOD CELL COUNT(AUTO) 2.61 MIL/uL (4.00-5.20); RED CELL DISTRIBUTION WIDTH 19.3 % (11.5-14.5); WHITE BLOOD COUNT (AUTO) 9.6 K/uL (4.5-11.0)
[2025-03-17 04:36] LABS: LACTIC ACID 1.6 mmol/L (0.4-2.0)
[2025-03-17] MEDS: ACETAMINOPHEN 650 MG/ISO-OSM 65 ML IV ONE (04:55)
[2025-03-17] MEDS: OxyCODONE HCL/ACETAMINOPHEN 5-325 MG TABLET PO ONE (08:30)
[2025-03-17] MEDS ORDERED: NOREPINEPHRINE 8 MG/0.9 % NACL 250 ML IV PRN (11:15)
== END 2025-03-17 11:33 | disposition short-term general hospital (02) ==
LOC: EMS 18:07
DX: D64.9 Anemia, unspecified (principal); T45.515A Adverse effect of anticoagulants, initial encounter; E11.9 Type 2 diabetes mellitus without complications; Z79.01 Long term (current) use of anticoagulants; Z79.82 Long term (current) use of aspirin; Z79.899 Other long term (current) drug therapy; Z95.0 Presence of cardiac pacemaker; Z95.1 Presence of aortocoronary bypass graft; Z99.2 Dependence on renal dialysis
CPT/HCPCS: 99285; 86927; 76830; 76856; 80048; 83605; 85025; 85610; 85730; 86850; 86900; 86901; 86922; 96372; 85018; 85014; 36430; 96374; 93005; 36415; J3430; P9016; P9017; J0131